=== PATIENT | male | born 1965 | race Caucasian/White ===

== ENCOUNTER 2022-10-27 13:05 | Observation (INO) | payer BC, SELFPAY ==
[2022-10-27] VITALS (7 sets, daily range): BP systolic 169–205; BP diastolic 93–113; PULSE 70–83; RESP 18; TEMP 36.6–36.8; O2SAT 96–97; BMI 34.9; BMI 34.3
--- NOTE | 2022-10-27 13:37 | CT_ITS ---
EXAM: CT HEAD WITHOUT INTRAVENOUS CONTRAST CLINICAL INDICATION: dizziness TECHNIQUE: Multiple axial images were obtained of the head without intravenous contrast. This CT exam was performed using one or more of the following dose reduction techniques: automated exposure control, adjustment of the mA and/or kV according to patient size, and/or use of iterative reconstruction technique. This report was created using [employer] report generation technology. COMPARISON: None. FINDINGS: BRAIN AND EXTRA-AXIAL SPACES: Normal. No intra- or extra-axial hemorrhage. No acute infarct. No intracranial mass or mass effect. There is preservation of the alejandra/white matter interface. Posterior fossa structures are unremarkable. Ventricles are appropriate for age. No hydrocephalus. Basal cisterns are patent. BONES/JOINTS: No suspicious lytic or blastic abnormality. SINUSES: Minimal opacification of the right mastoid sinus. MASTOID AIR CELLS: Normal. Clear. ORBITS: Visualized globes, extraocular muscles, optic nerves and retrobulbar fat appear unremarkable. CT/Brain/Head without Contrast IMPRESSION: No acute intracranial abnormality. Electronically Signed: Dany Weiss MD at 14:57 EDT ,
--- NOTE | 2022-10-27 13:38 | EKG12_ITS ---
Test Reason : Blood Pressure : / mmHG Vent. Rate : 076 BPM Atrial Rate : 076 BPM P-R Int : 194 ms QRS Dur : 106 ms QT Int : 406 ms P-R-T Axes : 056 -16 021 degrees QTc Int : 456 ms Normal sinus rhythm Normal ECG Confirmed by FLOR PALMER, TREY ([id number]), news videotape editor ASYA HAYWOOD ([id number]) on 10/28/2022 11:40:04 AM Referred By: LITA Confirmed By:TREY RAY MD
--- NOTE | 2022-10-27 13:41 | EDS_ITS ---
HPI History of Present Illness Chief Complaint: Dizziness Informant: patient and spouse/S.O. Onset/Context/Timing Onset: Days Context: Gradual Onset Timing: Continuous Current Severity: Mild Maximum Severity: Mild Narrative Narrative: 57-year-old male history of hypertension diabetes. No prior stroke or TIA. No history of vertigo or dizziness. States has been off balance, lightheaded and in dizzy for the last 5 days it started gradually on Friday. Nothing particular makes it better or worse other than with trying to get up and walk. He denies any headache. He denies any numbness or weakness to his upper or lower extremities. Again he had no prior history of this. He denies any head trauma. Denies any earaches or recent illness. Prior similar symptoms: No Recent Illness/Hospitalization: No PFSH PFSH Medical History Hypercholesteremia Hypertension Type 2 diabetes mellitus Home Medications atorvastatin 40 mg tablet 40 mg PO DAILY 10/27/22 [History Last Taken Unknown] glipizide 10 mg tablet, extended release 24 hr 10 mg PO DAILY 10/27/22 [History Last Taken Unknown] lisinopril 10 mg tablet 10 mg PO DAILY 10/27/22 [History Last Taken Unknown] meclizine 25 mg tablet 25 mg PO 4X/DAY PRN PRN Dizziness #20 tabs 10/27/22 [Rx Last Taken Unknown] pioglitazone 30 mg tablet 30 mg PO DAILY 10/27/22 [History Last Taken Unknown] Allergy/AdvReac Type Severity Reaction Status Date / Time No Known Allergies Allergy Verified 10/27/22 13:11 Family History (Updated 10/27/22 @ 18:[address] Alfred Trinidad DO) Other CVA (cerebral vascular accident) Social History Smoking Status: Current some day smoker tobacco type: cigars ROS ROS ED ROS Narrative Dizziness. Off balance. Review of Systems ROS Unobtainable: Denies due to encephalopathy Constitutional Constitutional ED: Denies chills or fever(s) Eyes Eyes: Denies blurry vision ENT ENT ED: Denies ear pain Cardiovascular Cardiovascular: Denies chest pain Respiratory/Chest Respiratory/Chest: Denies cough or dyspnea Gastrointestinal Gastrointestinal: Reports nausea and vomiting; Denies abdominal pain Genitourinary Genitourinary ED: Denies dysuria or hematuria Musculoskeletal Musculoskeletal: Denies arthralgias Integumentary Denies abscess Neurologic Neurologic: Denies headache(s) Psychiatric Psychiatric: Denies anxiety or depression Endocrine Endocrinology: Denies cold intolerance Hematologic/Lymphatic Hematologic/Lymphatic: Reports none Allergic/Immunologic Allergic/Immunologic ED: Denies mouth swelling or tongue swelling EXAM Physical Exam Narrative Exam Narrative: [id number] male vital signs stable afebrile. H EENT exam pupils round reactive light. His motions are intact. Moist with membranes. No facial droop. Normal speech. Neck nontender. Lungs clear to auscultation bilaterally. Heart regular rhythm rate about 80 no murmur. Chest wall nontender. Abdomen soft nontender. Moving all 4 extremities. 5-5 electrical high tension tester strength. Dorsi plantarflexion intact. Neurologic exam normal. NIH is 0. Extraocular motions are intact. Pupils round reactive light. No facial droop. Normal speech. Fingertip to nose and omfj-al-[id number] within normal limits. Normal strength and sensation both upper and lower extremities. No drift. Negative Hallpike maneuver. TMs are visualized and there is no signs of any cerumen impaction. Const Vital Signs: 10/27/22 13:06 10/27/22 13:13 10/27/22 15:12 Temperature 97.8 F Temperature Source Temporal Pulse Rate 83 Respiratory Rate 18 18 Respiratory Effort Normal Non-Labored Respiratory Pattern Normal Blood Pressure 169/93 H Blood Pressure Mean 118 Pulse Ox 97 Oxygen Delivery Method Room Air Room Air 10/27/22 17:08 Temperature Temperature Source Pulse Rate 70 Respiratory Rate 18 Respiratory Effort Respiratory Pattern Blood Pressure 191/98 H Blood Pressure Mean 129 Pulse Ox 97 Oxygen Delivery Method Room Air Positive well nourished and well developed; Negative for cachectic, contractures or unkempt General Appearance ED: well developed and NAD; Negative for unkempt, cachectic, contractures, cyanotic, diaphoretic or pallor Nutritional Appearance: Negative for cachectic HEENT Reports moist mucous membranes; Denies dry mucous membranes Negative for trauma or tenderness Mouth ED: No dry mucous membranes Mouth: No dry mucous membranes Eyes PERRL and EOMs intact bilaterally General Eye ED: Negative for pale conjunctiva, scleral icterus or other Neck no lymphadenopathy, supple and no JVD General: Negative for tenderness Lymph Lymphatic: Negative for other Chest Wall inspection of chest normal and palpation of chest normal Chest: Negative for other Resp normal respiratory effort and clear to auscultation bilaterally Effort and Inspection: Negative for retractions Auscultation: Negative for rales, rhonchi or wheezes Cardio regular rate, regular rhythm, S1 normal heart sound, S2 normal heart sound and no murmurs Palpation: Negative for palpable S3 Rate: Negative for bradycardia Rhythm: Negative for abnormal rhythm GI normal to inspection, nondistended, normoactive bowel sounds, non-tender, non- distended and no masses Inspection: Negative for abdominal distention Auscultation: normoactive bowel sounds Palpation: soft; Negative for tender or guarding Back/Spine no CVA tenderness General Back: Negative for CVA tenderness Cervical Spine: Negative for cervical spine tenderness Thoracic Spine / Upper Back: Negative for thoracic spinal tenderness Lumbar Spine / Lower Back: Negative for lumbar spinal tenderness Extremity normal to inspection General Extremety ED: Negative for edema or tenderness General Extremity: Negative for edema Neuro oriented x3 and CN's II-XII intact bilaterally Neuro Narrative: Lying in bed he has normal neurologic exam. NIH is 0. Fingertip to nose within normal limits. Normal speech. No facial droop. Negative Hallpike maneuver. Ryou-td-xcwe within normal limits. No drift of upper or lower extremities. Sensorium / Orientation: alert; Negative for orientation impaired, lethargic, stuporous or other Motor Exam: strength 5/5 throughout; Negative for general weakness or strength abnormal Psych mental status grossly normal Appearance: Negative for unkempt Attitude: No agitated Mood & Affect: Negative for depressed, anxious or tearful Skin no rashes or lesions noted and no wounds General Skin Exam: elasticity normal; Negative for jaundice or pallor Lesions: No lesion noted Rashes: No rashes noted Trauma: Negative for abrasion Wounds: Negative for wounds noted MDM MDM MDM Narrative Medical decision making narrative: 57-year-old diabetic hypertensive male with new onset dizziness for 4 to 5 days. Exam benign in bed. Clinically at least he had negative Hallpike this really does not seem like vertigo. Will be worked up for a possible stroke. He is outside of any window for tPA and his NIH is 0. We will try to ambulate him. Other considerations would be dehydration which clinically he does not appear, orthostatic hypotension which is does not appear to be. Electrolyte abnormalities etc. Screening labs and CAT scan EKG will be obtained. Repeat exam at 2:48 PM patient doing well. He has no symptoms now and he said he did not have any symptoms when I first examined him. His neurologic exam remains normal. I walked him he walks without any difficulty at all. No ataxia. He has a normal gait. He is not off balance. Again currently symptom- free. Patient CTA returned showing occlusion of the one vertebral artery. Discussed specifically with the radiologist who said he cannot determine if this is acute, if it is chronic or if it is an anatomical variant and he only has 1 vertebral artery. On repeat exam again the patient is symptom-free. He has a completely normal neurologic exam. He ambulates without any difficulty. I discussed this at length with he and his . The radiologist suggested an MRI that could more clarify this. I discussed the patient with the hospitalist and he is down evaluating for admission. We will mid to patient for further evaluation and MRI. The concern would be could this be a vertebrobasilar insufficiency or an acute occlusion. That she had to be determined. Patient and are aware and are comfortable with the plan. History & Record Review Discussion w/independent historian: Patient and Family Lab Data Attestation: I reviewed the patient's lab results. Lab results narrative: CBC normal. White count 9. H&H 14 and 44. Platelets 212. Electrolytes unremarkable gap of 4. BUN of 19 creatinine 0.9. Glucose 115. Labs are unremarkable. Labs: Laboratory Results - last 24 hr 10/27/22 10/27/22 13:49 13:49 WBC 9.2 RBC 5.20 Hgb 14.2 Hct 44.1 MCV 84.8 MCH 27.3 MCHC 32.2 RDW Std Deviation 41.2 RDW Coeff of Jamin 13.4 Plt Count 212 MPV 10.2 Immature Gran % (Auto) 0.400 Neut % (Auto) 63.4 Lymph % (Auto) 27.6 Mitchell % (Auto) 6.0 Eos % (Auto) 2.2 Baso % (Auto) 0.4 Absolute Neuts (auto) 5.8 Absolute Lymphs (auto) 2.54 Nucleated RBC % 0 Sodium 138 Potassium 3.9 Chloride 108 H Carbon Dioxide 26.0 Anion Gap 4 L BUN 19 H Creatinine 0.99 Estim Creat Clear Calc 94.16 Est GFR (MDRD) Af Amer 100 Est GFR (MDRD) Non-Af 83 BUN/Creatinine Ratio 19.2 Glucose 115 H Calcium 8.9 Radiography Diagnostic Testing: Clinical Impression(s) from Imaging Studies Brain CT 10/27/22 13:37 IMPRESSION: No acute intracranial abnormality. 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 Prominent tortuosity of the cervical portion of the internal carotid and vertebral arteries without focal stenosis or dissection. No intracranial aneurysm. Electronically Signed: Dany Weiss MD at 16:28 EDT , Rhythm Strip Rhythm Strip: Sinus Rhythm Rate: 76 Ectopy: None EKG Initial EKG: Attestation: I personally reviewed and interpreted this EKG as follows: Interpretation: Sinus Rhythm and No Acute Injury Pattern Comments: Sinus rhythm rate of 76 no acute signs of NV or ischemia. No dysrhythmia. Discharge Plan Dx/Rx/DC Orders Clinical Impression: Dizziness, History of diabetes mellitus, History of hypertension Disposition Disposition: Acute Care Hospital [facility]
[2022-10-27 13:55] LABS: Absolute Lymphocyte Count 2.54 X10^3/uL (0.83-4.51); Absolute Neutrophil Count 5.8 X10^3/uL (2.0-7.7); Basophil# 0.04 X10^3/uL; Basophil% 0.4 % (0-1); Eosinophils% 2.2 % (0-5); Hematocrit 44.1 % (40-54); Hemoglobin 14.2 g/dL (13.0-16.5); Lymphocyte # 2.54 X10^3/ul (0.83-4.51); Lymphocyte % 27.6 % (19-41); Mean Corp Hgb Conc 32.2 g/dL (32-36); Mean Corpuscular Hgb 27.3 pg (27.0-32.0); Mean Corpuscular Volume 84.8 fL (80-94); Mean Platelet Vol. 10.2 fl (6.2-12.0); Monocyte# 0.55 X10^3/uL; NRBC Flagged by Analyzer 0 % (0-5); Neutrophil # 5.82 X10^3/uL (2.7-7.7); Neutrophil % 63.4 % (47-70); Platelet Count 212 K/mm3 (150-450); RBC Distribution Width CV 13.4 % (11.6-14.6); RBC Distribution Width SD 41.2 fl (35.1-43.9); White Blood Count 9.2 K/mm3 (4.4-11.0)
[2022-10-27 14:07] LABS: Anion Gap 4 (5-15); BUN 19 mg/dL (7-18); BUN/Creat Ratio 19.2 RATIO (10-20); Calcium,Total 8.9 mg/dL (8.5-10.1); Chloride 108 mmol/L (98-107); Creatinine, Serum 0.99 mg/dL (0.70-1.30); EST Glomerular Filtration Rate 83 mL/min (>60); Est Glom Filt Rate - Afr Amer 100 mL/min (>60); Estimated Creatinine Clearance 94.16 ml/min; Glucose 115 mg/dL (74-106); Potassium 3.9 mmol/L (3.5-5.1); Sodium Level 138 mmol/L (136-145)
--- NOTE | 2022-10-27 14:52 | CT_ITS ---
INDICATION: transient ataxia EXAMINATION: CTA HEAD - CTA Head and Neck W/ Contrast Injection (and W/O Contrast Images if performed) TECHNIQUE: [place]/head CT angiogram protocol was performed following IV contrast. Routine carotid CT angiogram protocol was performed without and with IV contrast. NASCET criteria using the distal ICAs for comparison were used for evaluation of stenoses. 3D reconstructions were reviewed of the CT angiogram head and neck. A radiation dose optimization technique was used for this scan. IV Contrast dosage and agent: 100 cc [id number] COMPARISON: None. FINDINGS: --Anterior cerebral circulation: ACAs: No significant stenosis at the visualized segments. A single anterior cerebral artery noted distal to the anterior communicating artery. ACOM: Present. MCAs: No significant stenosis at the visualized segments. --Posterior cerebral circulation: PCOMs: Right P-comm is present. music executive: No significant stenosis at the visualized segments. BASILAR ARTERY: No significant stenosis. --Carotid and vertebral circulation: AORTIC ARCH AND BRANCHES: Normal anatomy, patent. RIGHT CCA: Calcific plaquing at the carotid bulb. No occlusion, significant stenosis or dissection. RIGHT ICA: Marked tortuosity. No occlusion, significant stenosis or dissection. LEFT CCA: Mild calcific plaquing at the carotid bulb. No occlusion, significant stenosis or dissection. LEFT ICA: Mild tortuosity. No occlusion, significant stenosis or dissection. RIGHT VERTEBRAL ARTERY: Moderate tortuosity. No occlusion, significant stenosis or dissection. LEFT VERTEBRAL ARTERY: Moderate tortuosity. 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 NECK SOFT TISSUES: Unremarkable. LUNG APICES: Clear. BONES: Unremarkable. 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 Prominent tortuosity of the cervical portion of the internal carotid and vertebral arteries without focal stenosis or dissection. No intracranial aneurysm. Electronically Signed: Dany Weiss MD at 16:28 EDT ,
--- NOTE | 2022-10-27 18:33 | HP.PCM.HOS_ITS ---
HPI - General General Date of Admission: 10/27/22 Date of Service: 10/27/22 Chief Complaint: vertio HPI Narrative CORONA PLASCENCIA, is a 57 M who presents presents with recurrent vertigo. Symptoms began last Friday began suddenly and abated suddenly. Had a couple of other episodes and then another one today. He was concerned and presented to the emergency room. Initial head CT was unremarkable. Got the patient up and walked around patient was doing well. CTA of the head neck showed occlusion of the proximal intracranial portion of the left vertebral artery. Discussed with Dr. Mcduffie, the emergency room, who spoke with radiology who stated that it could be an occlusion versus congenital abnormality but is unclear. But given the patient's findings, medical history, the decision was made to bring patient in for further neurologic evaluation including an MRI. Patient has never had vertigo like this in the past. [facility] Medical History Hypercholesteremia Hypertension Type 2 diabetes mellitus Home Medications atorvastatin 40 mg tablet 40 mg PO DAILY 10/27/22 [History Last Taken Unknown] glipizide 10 mg tablet, extended release 24 hr 10 mg PO DAILY 10/27/22 [History Last Taken Unknown] lisinopril 10 mg tablet 10 mg PO DAILY 10/27/22 [History Last Taken Unknown] meclizine 25 mg tablet 25 mg PO 4X/DAY PRN PRN Dizziness #20 tabs 10/27/22 [Rx Last Taken Unknown] pioglitazone 30 mg tablet 30 mg PO DAILY 10/27/22 [History Last Taken Unknown] Allergy/AdvReac Type Severity Reaction Status Date / Time No Known Allergies Allergy Verified 10/27/22 13:11 Family History (Updated 10/27/22 @ 18:[address] Alfred Trinidad DO) Other CVA (cerebral vascular accident) Social History Smoking Status: Current some day smoker tobacco type: cigars ROS ROS Narrative All review of systems were negative except as mentioned above in the history of present illness and the other review of systems. Vital Signs Vital Signs Vital Signs: 10/27/22 13:06 10/27/22 13:13 10/27/22 15:12 Temperature 36.6 C Temperature Source Temporal Pulse Rate 83 Respiratory Rate 18 18 Respiratory Effort Normal Non-Labored Respiratory Pattern Normal Blood Pressure 169/93 H Blood Pressure Mean 118 Pulse Ox 97 Oxygen Delivery Method Room Air Room Air 10/27/22 17:08 Temperature Temperature Source Pulse Rate 70 Respiratory Rate 18 Respiratory Effort Respiratory Pattern Blood Pressure 191/98 H Blood Pressure Mean 129 Pulse Ox 97 Oxygen Delivery Method Room Air Weight Weight: 120.202 kg Body Mass Index (BMI) 34.9 Physical Exam Narrative - Physical Exam General: Alert, Oriented x3, Cooperative HEENT: Atraumatic, PERRLA, EOMI, Normocephalic Oral: Moist Mucosa, No Gingival or Mucosal Lesions/ Ulcerations Neck: Supple, No JVD, Negative Carotid Bruits Lungs: Clear to auscultation, Normal air movement Cardiovascular: Regular rate, Normal S1, Normal S2, No murmurs Abdomen: Bowel Sounds Present, Soft, Non Tender, Non-Distended, No Hepato-splenomegaly Extremities: No clubbing, No cyanosis, No edema, Capillary Refill Less than 3 Seconds Skin: No rashes, No breakdown Musculoskeletal: No Tenderness to Palpation of Joints or Extremities Neurological: Neuro grossly intact. Cranial nerves II through XII gross intact strength 5-5 in upper and lower extremities. Finger-nose intact. Sensation grossly intact. Psych/Mental Status: Normal Affect, Appropriate Results Lab / Micro Data Attestation: I reviewed the patient's lab results. Result Diagrams: 10/27/22 13:49 10/27/22 13:49 Labs: Laboratory Results - last 24 hr 10/27/22 13:49: WBC 9.2, RBC 5.20, Hgb 14.2, Hct 44.1, MCV 84.8, MCH 27.3, MCHC 32.2, RDW Std Deviation 41.2, RDW Coeff of Jamin 13.4, Plt Count 212, MPV 10.2, Immature Gran % (Auto) 0.400, Neut % (Auto) 63.4, Lymph % (Auto) 27.6, [place] % (Auto) 6.0, Eos % (Auto) 2.2, Baso % (Auto) 0.4, Absolute Neuts (auto) 5.8, Absolute Lymphs (auto) 2.54, Nucleated RBC % 0 10/27/22 13:49: Sodium 138, Potassium 3.9, Chloride 108 H, Carbon Dioxide 26.0, Anion Gap 4 L, BUN 19 H, Creatinine 0.99, Estim Creat Clear Calc 94.16, Est GFR (MDRD) Af Amer 100, Est GFR (MDRD) Non-Af 83, BUN/Creatinine Ratio 19.2, Glucose 115 H, Calcium 8.9 Rhythm Strip Rhythm Strip: Sinus Rhythm Rate: 76 Ectopy: None EKG Initial EKG: Attestation: I personally reviewed and interpreted this EKG as follows: Prior EKG tracings: available for review EKG Rhythm Intrepretation: Sinus Rhythm Radiology Impression Brain CT 10/27/22 13:37 IMPRESSION: No acute intracranial abnormality. 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 Prominent tortuosity of the cervical portion of the internal carotid and vertebral arteries without focal stenosis or dissection. No intracranial aneurysm. Electronically Signed: Dany Weiss MD at 16:28 EDT , Assessment & Plan Assessment/Plan (1) Dizziness: PLAN: Etiology could be BPPV versus posterior circulation stroke. Going against posterior circulation stroke is the fact that it is intermittent. 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 Could be an occlusion versus congenital abnormality. PLAN: Plan Chronic condition * Hypertension: Accelerated this time. Continue with lisinopril. As needed hydralazine. * Diabetes mellitus type 2: Noncemented. Continue with his home medications. Sliding scale insulin. Check an A1c. * Hyperlipidemia: Continue with statin. Check lipid panel. VTE prophylaxis: Not indicated given current observation status Charges/Coding Visit Charges Inpatient E&M: 09809 Init Hosp L3
[2022-10-27] MEDS: Lisinopril 10 MG Tablet PO (18:50)
--- NOTE | 2022-10-27 19:22 | ECHOD_ITS ---
Reason For Study: TIA/CVA Procedure This was a 2D Doppler, Color Flow transthoracic echocardiogram. Exam performed portable in patient room. Left Ventricle Normal LV size. Left ventricular systolic function is normal. Stage 1 diastolic dysfunction. The estimated ejection fraction is 55 %. No regional wall motion abnormalities noted. Right Ventricle Normal RV size. The right ventricle is normal in size, function, and thickness. Atria Normal left atrium. Normal right atrium. Bubble contrast study negative for right to left interatrial shunt. Mitral Valve Normal mitral valve. Tricuspid Valve Normal tricuspid valve. Aortic Valve Normal aortic valve. Pulmonic Valve Normal pulmonic valve. Great Vessels Normal aortic root. The pulmonary artery is normal size. Normal inferior vena cava. Pericardium/Pleural No pericardial effusion. Medication Performed a rapid injection of agitated mix of 9 cc saline and 1cc air to assess for atrial septal defect. MMode/2D Measurements & Calculations LVIDd: 4.6 cm IVSd: 1.3 cm Ao root diam: 3.5 cm LVIDs: 3.4 cm LVPWd: 1.1 cm RVDd: 4.1 cm FS: 25.4 % LAV(MOD-bp): 54.3 ml LVAd ap4: 28.2 cm2 SV(MOD-sp4): 46.2 ml LAV(MOD-bp) Indexed: 22.4 ml/m2 LVLd ap4: 8.3 cm LAV(MOD-sp2): 68.8 ml EDV(MOD-sp4): 77.3 ml LAV(MOD-sp4): 43.8 ml EDV(sp4-el): 81.3 ml LVAs ap4: 15.9 cm2 LVLs ap4: 6.8 cm ESV(MOD-sp4): 31.2 ml ESV(sp4-el): 31.2 ml EF(MOD-sp4): 59.7 % EF(sp4-el): 61.6 % SV(sp4-el): 50.1 ml LA A4 area: 17.3 cm2 LA dimension(2D): 3.9 cm RA A4 area: 13.2 cm2 Time Measurements MV dec time: 0.23 sec Doppler Measurements & Calculations MV E max angelo: 53.2 cm/sec Lat Peak E' Angelo: 5.2 cm/sec Med Peak E' Angelo: 5.9 cm/sec MV A max angelo: 81.7 cm/sec E/E' lat: 10.3 E/E' med: 9.0 MV E/A: 0.65 MV dec slope: 230.2 cm/sec2 Ao V2 max: 119.2 cm/sec LV V1 max: 101.5 cm/sec Ao max P.7 mmHg LV V1 max P.1 mmHg Ao V2 mean: 90.9 cm/sec Ao mean P.5 mmHg Ao V2 VTI: 25.6 cm PA V2 max: 91.6 cm/sec ECHO/Echo Complete Interpretation Summary Normal LV size. Left ventricular systolic function is normal. Stage 1 diastolic dysfunction. The estimated ejection fraction is 55 %. Bubble contrast study negative for right to left interatrial shunt. Ordering Physician: Alfred Trinidad Referring Physician: Zina Le Performed By: Maritza Galloway, MARGIE, RVT
[2022-10-27 19:36] LABS: Troponin-I HS 6 pg/mL (3.0-78.0)
[2022-10-27 19:58] LABS: Hemoglobin A1c 7.4 % (3.8-5.6)
[2022-10-27 22:25] LABS: Bedside Glucose 108 mg/dL (74-106)
[2022-10-28 03:20] VITALS: BP 142/91; PULSE 83; RESP 16; TEMP 36.4; O2SAT 96
[2022-10-28 05:58] LABS: Cholesterol 181 mg/dL (200); High Density Lipoprotein 35 mg/dL; Triglycerides 186 mg/dL; Very Low Density Lipoprotein 37 mg/dL (5-40)
[2022-10-28] MEDS: Insulin Lispro 100 UNIT/ML INSULN.PEN SC ×2 (06:43→12:02)
[2022-10-28] MEDS: Acetaminophen 325 MG Tablet 650 MG PO (06:43)
[2022-10-28 07:14] VITALS: BP 175/94; PULSE 81; RESP 18; TEMP 36.6; O2SAT 95
--- NOTE | 2022-10-28 07:16 | PN.HOSP_ITS ---
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 (10/27/22) Dizziness and giddiness (10/27/22) Objective Data Objective Data Vital Signs: Vital Signs Temp Pulse Resp BP Pulse Ox O2 Del Method 97.9 F 81 18 175/94 H 95 Room Air 10/28/22 07:14 10/28/22 07:14 10/28/22 07:14 10/28/22 07:14 10/28/22 07:14 10/28/22 07:14 Oxygen Delivery Method Room Air Weight: 118.2 kg Body Mass Index (BMI) 34.3 Intake & Output: Intake and Output for Last 24 Hours 10/26/22 10/27/22 10/28/22 23:59 23:59 23:59 Intake Total 300 / 300 300 / 300 Balance 300 / 300 300 / 300 Lab / Micro Data Result Diagrams: 10/27/22 13:49 10/27/22 13:49 Labs: Laboratory Results - last 24 hr 10/27/22 13:49: WBC 9.2, RBC 5.20, Hgb 14.2, Hct 44.1, MCV 84.8, MCH 27.3, MCHC 32.2, RDW Std Deviation 41.2, RDW Coeff of Jamin 13.4, Plt Count 212, MPV 10.2, Immature Gran % (Auto) 0.400, Neut % (Auto) 63.4, Lymph % (Auto) 27.6, [place] % (Auto) 6.0, Eos % (Auto) 2.2, Baso % (Auto) 0.4, Absolute Neuts (auto) 5.8, Ab solute Lymphs (auto) 2.54, Nucleated RBC % 0 10/27/22 13:49: Sodium 138, Potassium 3.9, Chloride 108 H, Carbon Dioxide 26.0, Anion Gap 4 L, BUN 19 H, Creatinine 0.99, Estim Creat Clear Calc 94.16, Est GFR (MDRD) Af Amer 100, Est GFR (MDRD) Non-Af 83, BUN/Creatinine Ratio 19.2, Glucose 115 H, Calcium 8.9 10/27/22 13:49: Troponin I High Sens 6 10/27/22 13:49: Hemoglobin A1c 7.4 H 10/27/22 20:22: POC Glucose 108 H 10/28/22 05:18: Triglycerides 186, Cholesterol 181, LDL Cholesterol 109, VLDL Cholesterol 37, HDL Cholesterol 35 L Radiography Diagnostic Testing: Radiology Impression Brain CT 10/27/22 13:37 IMPRESSION: No acute intracranial abnormality. 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 Prominent tortuosity of the cervical portion of the internal carotid and vertebral arteries without focal stenosis or dissection. No intracranial aneurysm. Electronically Signed: Dany Weiss MD at 16:28 EDT , Rhythm Strip Rhythm Strip: Sinus Rhythm Rate: 76 Ectopy: None
[2022-10-28 07:20] LABS: Bedside Glucose 161 mg/dL (74-106)
[2022-10-28 07:41] LABS: Absolute Lymphocyte Count 2.39 X10^3/uL (0.83-4.51); Absolute Neutrophil Count 5.8 X10^3/uL (2.0-7.7); Basophil# 0.05 X10^3/uL; Basophil% 0.6 % (0-1); Eosinophil# 0.26 X10^3/uL; Eosinophils% 2.9 % (0-5); Hematocrit 46.4 % (40-54); Hemoglobin 14.8 g/dL (13.0-16.5); Lymphocyte # 2.39 X10^3/ul (0.83-4.51); Lymphocyte % 26.6 % (19-41); Mean Corp Hgb Conc 31.9 g/dL (32-36); Mean Corpuscular Hgb 27.2 pg (27.0-32.0); Mean Corpuscular Volume 85.1 fL (80-94); Mean Platelet Vol. 10.3 fl (6.2-12.0); Monocyte% 5.6 % (0-10); NRBC Flagged by Analyzer 0 % (0-5); Neutrophil # 5.76 X10^3/uL (2.7-7.7); Neutrophil % 63.9 % (47-70); Platelet Count 209 K/mm3 (150-450); RBC Distribution Width CV 13.5 % (11.6-14.6); RBC Distribution Width SD 41.6 fl (35.1-43.9); Red Blood Count 5.45 M/mm3 (4.6-6.2)
[2022-10-28 07:55] LABS: ALB/GLOB Ratio 1.2 RATIO (0.9-2.4); AST(SGOT) 16 U/L (15-37); Alanine Aminotransfer ALT/SGPT 30 U/L (16-61); Albumin, Serum 3.7 g/dL (3.2-5.0); Alkaline Phosphatase 61 U/L (45-117); Anion Gap 5 (5-15); BUN 14 mg/dL (7-18); BUN/Creat Ratio 16.6 RATIO (10-20); Calcium,Total 8.6 mg/dL (8.5-10.1); Chloride 107 mmol/L (98-107); Creatinine, Serum 0.84 mg/dL (0.70-1.30); EST Glomerular Filtration Rate 100 mL/min (>60); Est Glom Filt Rate - Afr Amer 121 mL/min (>60); Estimated Creatinine Clearance 110.97 ml/min; Glucose 157 mg/dL (74-106); Protein, Total 6.7 g/dL (6.4-8.2); Sodium Level 136 mmol/L (136-145)
--- NOTE | 2022-10-28 07:57 | MRI_ITS ---
STUDY: MRI BRAIN WITHOUT CONTRAST REASON FOR EXAM: Male, 57 years old. vertigo. left vertebral occlusion TECHNIQUE: Standardized multiplanar fat and water weighted pulse sequences were obtained. COMPARISON: Head CT dated October 27, 2022. Head CTA dated October 27, 2022 FINDINGS: Normal size of the ventricles and extra-axial spaces for the patient''s age. There are a limited number of small white matter hyperintensities, distributed throughout the deep white matter tracts of the cerebral hemispheres, consistent with mild chronic white matter ischemic changes. There is no evidence for recent intracranial ischemia or other cause of cytotoxic edema on diffusion weighted imaging (DWI). Normal T2* images of the brain without demonstrated susceptibility artifact. There is no demonstrated hemosiderin stain. Normal bilateral basal ganglia. Normal thalami. There is no extra-axial fluid accumulation. Normal flow voids within the major intracranial circulation suggesting patency by spin echo criteria. Normal sella turcica, pituitary gland, infundibular stalk, optic chiasm and hypothalamus. Normal tectal plate and pineal gland. Normal midbrain, itz and medulla. Normal cerebellum. Normal basal cisterns. Normal bilateral temporal bones. Normal bilateral internal auditory canals. No demonstrated orbital abnormality, within the constraints of a routine brain study. Normal visualized paranasal sinuses. Normal calvarium and skull base. Normal visualized soft tissue structures. Normal visualized upper cervical spine. There is mild opacification of the bilateral mastoid air cells, right greater than left. MRI/Brain without Contrast IMPRESSION: 1. Mild chronic ischemic changes of the brain, as described above. 2. No demonstrated acute infarct or intracranial hemorrhage Electronically Signed: Héctor Tenorio MD at 10:47 EDT ,
[2022-10-28] MEDS: Pioglitazone Hydrochloride 30 MG Tablet PO (09:06)
[2022-10-28] MEDS: Lisinopril 10 MG Tablet PO (09:07)
[2022-10-28] MEDS: Aspirin 81 MG TAB.CHEW PO (09:07)
[2022-10-28 12:00] VITALS: BP 161/99; PULSE 89; RESP 18; TEMP 36.4; O2SAT 98
[2022-10-28 12:30] LABS: Bedside Glucose 199 mg/dL (74-106)
[2022-10-28] MEDS: Meclizine 12.5 MG Tablet PO (13:35)
[2022-10-28] MEDS: amLODIPine 5 MG Tablet PO (13:35)
[2022-10-28 14:12] VITALS: BP 149/98; BP 151/93; PULSE 96; PULSE 97
--- NOTE | 2022-10-28 14:32 | CASEMGMT ---
TOM LEMUS updated by hospitalist that patient may benefit from vestibular therapy at discharge. Script received and provided to patient with [employer] information. Patient had no further questions or concerns at this time.
--- NOTE | 2022-10-28 14:43 | DCINST_ITS ---
Discharge Instructions Diet Discharge Diet: No restrictions Activity Discharge Activity: - (Would recommend discussing with your primary care physician this week regarding optimal timing to return to work if your symptoms have improved/resolved) Follow Up Care Test Results: Test results from this visit will be discussed in further detail at your follow- up appointment, if applicable. Discharge Plan Admission Admit Date/Time: 10/27/22 18:26 Primary Reason for Your Visit: Dizziness Attending Provider: Leslie Biswas Primary Care Provider: Zina Le Consulting Providers: Alfred Trinidad Instructions Patient Instructions: BPPV Additional Instructions / Restrictions: DISCHARGE INSTRUCTIONS PLEASE READ *Please take this with you to your next doctors appointment* -You have been prescribed meclizine to take as needed for dizziness episodes -You will also be given a prescription for vestibular rehab, it is strongly advised that you pursue this upon discharge to help with your symptoms -Information neurology will also be provided, would recommend you call upon discharge to schedule an appointment -You had your lisinopril increased to 20 mg daily for your high blood pressure -Would recommend checking your blood pressure daily, if you are systolic blood pressure (top number) is consistently greater than 140 for 3 days or greater than 180 at any point please call your primary care physician for further instructions -Would recommend lab work (BMP) to check your kidney function in 2 to 3 days through your primary care physician's office. Please call their office upon discharge to obtain order for lab work. -Please call your primary care provider's office upon discharge to schedule a hospital follow up within 1 week. -For any concerning signs or symptoms please call 911 or proceed to the nearest emergency department Discharge Orders/Prescriptions Prescriptions: New meclizine 25 mg tablet 25 mg PO 4X/DAY PRN PRN (Reason: Dizziness) Qty: 20 0RF lisinopril 20 mg tablet 20 mg PO DAILY Qty: 30 0RF Continued atorvastatin 40 mg Tablet 40 mg PO DAILY glipizide 10 mg Tablet Extended Release 24hr 10 mg PO DAILY pioglitazone 30 mg Tablet 30 mg PO DAILY Discontinued lisinopril 10 mg Tablet 10 mg PO DAILY Referrals / Follow Up: Zina Le MD [Primary Care Provider] - Within 1 Week Francisco Crandall MD [Non-Staff -Ordering Privileges] - See Referral Note (Please follow-up with neurology upon discharge, please call Dr. Crandall's office upon discharge to schedule an appointment (ph [phone])) Disposition Disposition (needs filled in before D/C Order can be placed): Home, Self Care
--- NOTE | 2022-10-28 14:45 | PCM.DC.SUM ---
Providers Date of Admission: 10/27/22 Date of Discharge: 10/28/22 Primary Care Physician: Dr. 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 Medications at Discharge Home Medications atorvastatin 40 mg tablet 40 mg PO DAILY 10/27/22 glipizide 10 mg tablet, extended release 24 hr 10 mg PO DAILY 10/27/22 meclizine 25 mg tablet 25 mg PO 4X/DAY PRN PRN Dizziness #20 tabs 10/27/22 pioglitazone 30 mg tablet 30 mg PO DAILY 10/27/22 lisinopril 20 mg tablet 20 mg PO DAILY #30 tabs 10/28/22 Hospital Course Procedures 2-D Echocardiogram and - (MRI) Summary of Care Provided Minutes Spent on Discharge: 35 Hospital Course: 57-year-old male history of type 2 diabetes and hypertension presented to [facility] 10/27/2022 with recurrent dizziness episodes that began last Friday and have been off and on. He had another on the day of admission and CT head unremarkable initially however CTA neck showed proximal intracranial portion of left vertebral artery was possibly occluded and ED spoke with radiology who said it was occlusion versus congenital abnormality but it was unclear and is advised he was admitted for further work-up and MRI. MRI with chronic changes and echocardiogram with stage I diastolic dysfunction and an EF of 55% with negative right to left interatrial shunt. Did have 1 episode of the dizzy feeling prior to discharge and it was very positional and resolved after meclizine. No residual symptoms or focal deficits. Orthostats repeated at that time and were negative. Discussed with patient and family member at bedside. Given imaging and symptoms suspect that this is peripheral and not central. Discussed with vascular and given his lack of significant stenosis and other vessels does not have acute indication for vascular inpatient. Likely that this could be congenital, however if completely occluded no intervention would be warranted. Discussed findings and vestibular rehab and patient agreeable to discharge. Discharge instructions as followed: -You have been prescribed meclizine to take as needed for dizziness episodes -You will also be given a prescription for vestibular rehab, it is strongly advised that you pursue this upon discharge to help with your symptoms -Information neurology will also be provided, would recommend you call upon discharge to schedule an appointment -You had your lisinopril increased to 20 mg daily for your high blood pressure -Would recommend checking your blood pressure daily, if you are systolic blood pressure (top number) is consistently greater than 140 for 3 days or greater than 180 at any point please call your primary care physician for further instructions -Would recommend lab work (BMP) to check your kidney function in 2 to 3 days through your primary care physician's office.? Please call their office upon discharge to obtain order for lab work. -Please call your primary care provider's office upon discharge to schedule a hospital follow up within 1 week. -For any concerning signs or symptoms please call 911 or proceed to the nearest emergency department Physical Exam Narrative General: Alert, oriented, no apparent distress HEENT: Atraumatic, normocephalic Eyes: Anicteric, normal conjunctiva, extraocular movements grossly intact Neck: Supple Respiratory: Clear to auscultation bilaterally, normal respiratory effort Cardiovascular: Regular rate and rhythm GI: Soft, nontender, nondistended Extremities: No edema Musculoskeletal: Moving all extremities Neuro: No overt focal neurological deficits, finger-nose without difficulty, no nystagmus, pupils equal round reactive to light, extraocular movements intact, no confusion, cranial nerves II through XII intact Skin: No rashes appreciated Psych: Cooperative Weight / BMI Weight Weight: 118.2 kg Body Mass Index (BMI) 34.3 ABG / Lab / Microbiology Data Result Diagrams: 10/28/22 05:18 10/28/22 05:18 Laboratory: Laboratory Results - last 24 hr 10/27/22 13:49: Troponin I High Sens 6 10/27/22 13:49: Hemoglobin A1c 7.4 H 10/27/22 20:22: POC Glucose 108 H 10/28/22 05:18: Triglycerides 186, Cholesterol 181, LDL Cholesterol 109, VLDL Cholesterol 37, HDL Cholesterol 35 L 10/28/22 05:18: WBC 9.0, RBC 5.45, Hgb 14.8, Hct 46.4, MCV 85.1, MCH 27.2, MCHC 31.9 L, RDW Std Deviation 41.6, RDW Coeff of Jamin 13.5, Plt Count 209, MPV 10.3, Immature Gran % (Auto) 0.400, Neut % (Auto) 63.9, Lymph % (Auto) 26.6, [place] % (Auto) 5.6, Eos % (Auto) 2.9, Baso % (Auto) 0.6, Absolute Neuts (auto) 5.8, Absolute Lymphs (auto) 2.39, Nucleated RBC % 0 10/28/22 05:18: Sodium 136, Potassium 4.0, Chloride 107, Carbon Dioxide 24.0, Anion Gap 5, BUN 14, Creatinine 0.84, Estim Creat Clear Calc 110.97, Est GFR (MDRD) Af Amer 121, Est GFR (MDRD) Non-Af 100, BUN/Creatinine Ratio 16.6, Glucose 157 H, Calcium 8.6, Total Bilirubin 0.40, AST 16, ALT 30, Alkaline Phosphatase 61, Total Protein 6.7, Albumin 3.7, Globulin 3.0, Albumin/Globulin Ratio 1.2 10/28/22 06:39: POC Glucose 161 H 10/28/22 12:00: POC Glucose 199 H Radiography Diagnostic Testing: Radiology Impression Brain CT 10/27/22 13:37 IMPRESSION: No acute intracranial abnormality. 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 Prominent tortuosity of the cervical portion of the internal carotid and vertebral arteries without focal stenosis or dissection. No intracranial aneurysm. Electronically Signed: Dany Weiss MD at 16:28 EDT , Echocardiogram 10/27/22 19:22 Interpretation Summary Normal LV size. Left ventricular systolic function is normal. Stage 1 diastolic dysfunction. The estimated ejection fraction is 55 %. Bubble contrast study negative for right to left interatrial shunt. Ordering Physician: Alfred Trinidad Referring Physician: Zina Le Performed By: Maritza Galloway, MARGIE, RVT Brain MRI 10/28/22 07:57 IMPRESSION: 1. Mild chronic ischemic changes of the brain, as described above. 2. No demonstrated acute infarct or intracranial hemorrhage Electronically Signed: Héctor Tenorio MD at 10:47 EDT Reading Location ID and State: [facility] / [place] , Service support , D/C Instructions Discharge Diet: No restrictions Meaningful Use Info Meaningful Use Diagnoses (Choose all that apply): None applicable Discharge Plan Admission Admit Date/Time: 10/27/22 18:26 Primary Reason for Your Visit: Dizziness Attending Provider: Leslie Biswas Primary Care Provider: Zina Le Consulting Providers: Alfred Trinidad Instructions Patient Instructions: BPPV Additional Instructions / Restrictions: DISCHARGE INSTRUCTIONS PLEASE READ *Please take this with you to your next doctors appointment* -You have been prescribed meclizine to take as needed for dizziness episodes -You will also be given a prescription for vestibular rehab, it is strongly advised that you pursue this upon discharge to help with your symptoms -Information neurology will also be provided, would recommend you call upon discharge to schedule an appointment -You had your lisinopril increased to 20 mg daily for your high blood pressure -Would recommend checking your blood pressure daily, if you are systolic blood pressure (top number) is consistently greater than 140 for 3 days or greater than 180 at any point please call your primary care physician for further instructions -Would recommend lab work (BMP) to check your kidney function in 2 to 3 days through your primary care physician's office. Please call their office upon discharge to obtain order for lab work. -Please call your primary care provider's office upon discharge to schedule a hospital follow up within 1 week. -For any concerning signs or symptoms please call 911 or proceed to the nearest emergency department Discharge Orders/Prescriptions Prescriptions: New meclizine 25 mg tablet 25 mg PO 4X/DAY PRN PRN (Reason: Dizziness) Qty: 20 0RF lisinopril 20 mg tablet 20 mg PO DAILY Qty: 30 0RF Continued atorvastatin 40 mg Tablet 40 mg PO DAILY glipizide 10 mg Tablet Extended Release 24hr 10 mg PO DAILY pioglitazone 30 mg Tablet 30 mg PO DAILY Discontinued lisinopril 10 mg Tablet 10 mg PO DAILY Referrals / Follow Up: Zina Le MD [Primary Care Provider] - Within 1 Week Francisco Crandall MD [Non-Staff -Ordering Privileges] - See Referral Note (Please follow-up with neurology upon discharge, please call Dr. Crandall's office upon discharge to schedule an appointment (ph [phone])) Disposition Disposition (needs filled in before D/C Order can be placed): Home, Self Care Charges/Coding Visit Charges Inpatient E&M: 14134 Disch Hosp >30min
[2022-10-28 15:02] VITALS: BP 151/93; PULSE 89; RESP 18; TEMP 36.4; O2SAT 98
--- NOTE | 2022-10-28 15:04 | CHAPLAIN ---
Type of Pastoral Visit _x__ Initial Visit ___ Follow-up Visit ___ On-call Visit ___ General Patient Visit ___ Spiritual Assessment ___ Family Conference ___ Bereavement ___ Rapid Response ___ Code Blue ___ Other (describe below) Pastoral Care Referral From _x__ Patient ___ Family ___ Nurse ___ Physician ___ Telephone Sterilizer ___ Incoming Freight Clerk ___ Other (describe below) Sacrament/Intervention ___ Active listening ___ Anointing ___ Jewish ___ Bereavement ___ Communion ___ Jacque exploration ___ ___ Life review ___ Prayer ___ Reconciliation ___ Sacrament of Sick _x__ Supportive presence ___ Wedding ___ Other (describe below) Pastoral Comments patient had met with DR just prior to this visit and stated that he was given discharge; pt says that he has no needs or concerns at this time
--- NOTE | 2022-10-28 15:13 | PHA.DC.MC ---
Pharmacy Service has performed discharge medication reconciliation and counseling for this patient. 1. MECLIZINE 25MG PO 4X/DAY PRN DIZZINESS The patient's discharge medication list was reviewed for discrepancies and discrepancies were resolved. Home Medications atorvastatin 40 mg tablet 40 mg PO DAILY 10/27/22 glipizide 10 mg tablet, extended release 24 hr 10 mg PO DAILY 10/27/22 meclizine 25 mg tablet 25 mg PO 4X/DAY PRN PRN Dizziness #20 tabs 10/27/22 pioglitazone 30 mg tablet 30 mg PO DAILY 10/27/22 lisinopril 20 mg tablet 20 mg PO DAILY #30 tabs 10/28/22 The patient was counseled on the following discharge medications and changes in medications for homegoing were reviewed. The Reason for Use, instructions for use, and potential side effects were reviewed for all new medications. The patient's questions regarding all of their medications were answered. The patient was able to verbally demonstrate an understanding of their discharge medications.
[2022-10-28 16:03] VITALS: O2SAT 96
== END 2022-10-28 14:43 | disposition home or self-care (01) ==
LOC: ED 18:03 → PCU 18:35
PROVIDERS: Emergency Provider Emergency Medicine; PCP Family Medicine; Visit Provider Internal Medicine
DX: R42 Dizziness and giddiness (principal); E11.9 Type 2 diabetes mellitus without complications; F17.290 Nicotine dependence, other tobacco product, uncomplicated; I10 Essential (primary) hypertension; E78.00 Pure hypercholesterolemia, unspecified; Z79.899 Other long term (current) drug therapy; Z79.84 Long term (current) use of oral hypoglycemic drugs
CPT/HCPCS: 36415; 70450; 70496; 70498; 70551; 80048; 80053; 80061; 82962; 83036; 84484; 85025; 93005; 93306; 97161; 99221; 99284; Q9957; Q9967; A4216; G0378

== ENCOUNTER → 2024-01-28 | Outpatient (CLI) | payer BC, SELFPAY ==
--- NOTE | 2024-01-28 15:11 | CT_ITS ---
HISTORY: Right tonsillar mass. History of hypertension and diabetes. TECHNIQUE: Helically acquired images were obtained of the neck after the intravenous administration of 100 mL Isovue 370. A radiation dose optimization technique was used for this scan. 313 images. COMPARISON: CTA 10/27/2022. FINDINGS: NASOPHARYNX: Unremarkable. SUPRAHYOID NECK: 3.8 x 4.8 x 5 cm lobulated, heterogeneous, and mildly enhancing right tonsillar mass extending into the oral cavity and tongue. Mild-moderate narrowing and mild leftward deviation of the oropharyngeal airway. Abutment and possible invasion of the right retropharyngeal soft tissues. INFRAHYOID NECK: Unremarkable larynx, hypopharynx, and supraglottis. THYROID: No focal lesions. SALIVARY GLANDS: Right tonsillar mass abuts and possibly invades the right submandibular gland. Homogeneous parotid glands. LYMPH NODES: 1.7 x 2.6 cm necrotic right level 2 lymph node. Left level 2 lymph nodes measuring up to 1.1 cm. VASCULAR STRUCTURES: Mild atherosclerosis present. ORBITS: Symmetric contents. PARANASAL SINUSES: Mild left maxillary sinus because of thickening. MASTOID AIR CELLS: Trace fluid in the right mastoid air cells. OSSEOUS STRUCTURES: Degenerative changes with posterior disc bulge osteophyte complexes at C5-6 and C6-7. No suspicious osteoblastic or osteolytic lesion. Midline sternotomy. LUNG APICES: Clear. 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 Electronically Signed: Vonda Pressley MD at 8:45 EDT ,
[2024-01-28 16:05] LABS: CREATININE FINGERSTICK < 1.0 mg/dL (0.70-1.30); EGFR FINGERSTICK > 60.0000 mL/min (>60)
== END | disposition home or self-care (01) ==
LOC: CT 15:05
PROVIDERS: PCP Family Medicine; Referring Provider Otolaryngology; Visit Provider Otolaryngology
DX: M85.80 Other specified disorders of bone density and structure, unspecified site (principal)
CPT/HCPCS: 70491; Q9967; A4216

== ENCOUNTER 2024-04-09 07:42 | Day surgery (SDC) | payer BC, SELFPAY ==
--- NOTE | 2024-04-09 08:05 | PRE.ANES_ITS ---
ASA Classification* ASA Classification ASA Classification: 3 Assessment & Plan Anesthesia* Anesthesia Assessment Anesthesia Assessment: Discussed sedation and/or anesthesia options, risks, benefits, and alternatives with patient/parents/legal guardian/POA. Questions invited. The patient/parents/legal guardian/POA seems to understand and agrees to proceed with anesthesia plan. Reviewed the physical assessment, medical history, allergy history and patient home medications list prior to surgery/procedure/anesthetic and documented any changes. Performed airway and anesthesia risk assessments. Anesthesia Type Anesthesia Type: MAC (see written pre anesthesia record for full assessment) Anesthesia Focused Assessment* Airway Assessment Mouth opens: >3 cm Mallampati Score: II Focused Labs Anesthesia Preop lab: CBC WBC 7.9 K/mm3 (4.4-11.0) 04/05/24 10:15 RBC 5.10 M/mm3 (4.6-6.2) 04/05/24 10:15 Hgb 13.6 g/dL (13.0-16.5) 04/05/24 10:15 Hct 42.9 % (40-54) 04/05/24 10:15 Plt Count 235 K/mm3 (150-450) 04/05/24 10:15 CHEMISTRY Potassium 4.3 mmol/L (3.5-5.1) 04/05/24 10:15 Sodium 140 mmol/L (136-145) 04/05/24 10:15 Magnesium 2.0 mg/dL (1.6-2.6) 04/05/24 10:15 Phosphorus 3.0 mg/dL (2.5-4.9) 04/05/24 10:15 BUN 16 mg/dL (7-18) 04/05/24 10:15 Creatinine 0.92 mg/dL (0.70-1.30) 04/05/24 10:15 Glucose 130 mg/dL (74-106) H 04/05/24 10:15 POC Glucose 199 mg/dL (74-106) H 10/28/22 12:00 COAG Pre-Assessment Diagnosis/Proposed Procedure Planned Operative Procedure(s): LEFT VASCULAR PORT INSERTION Anesthesia History 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 When Was Last Pacemaker Check QUESTION #4 FULL TEXT: You/Your Family Experience fever (hyperthermia) with Anesthesia Last Oral Intake Last Oral intake: Last Oral Intake NPO since Meds taken in AM with sips of water? Meds patient instructed to take am of surgery PONV PONV - ear machine operator: PONV - ear machine operator Female No 04/07/24 15:36 HX of Motion Sickness No 04/07/24 15:36 HX of N/V After Surgery No 04/07/24 15:36 Non-Smoker Yes 04/07/24 15:36 Duration of Surgery greater No 04/07/24 15:36 than 60 minutes Number of Risk Factors 1 04/07/24 15:36 PONV Score Low Risk 04/07/24 15:36 Height & Weight Height & Weight: Anesthesia: Height & Weight Height 6 ft 1 in 04/08/24 09:11 Weight: 107.048 kg 04/08/24 09:11 Respiratory Assessment Respiratory Assessment - ear machine operator: Respiratory Tract Infection Hx - ear machine operator Hx Respiratory Tract Infection No 04/07/24 15:36 STOP Sleep Apnea STOP Sleep Apnea - ear machine operator: STOP Sleep Apnea - ear machine operator Hx Hypertension Yes: CONTROLLED WITH MED 04/07/24 15:36 Hx Sleep Apnea No 04/07/24 15:36 CPAP BIPAP Do you snore loudly (louder No 04/07/24 15:36 than talking or can be heard Do you often feel tired/ No 04/07/24 15:36 fatigued/ sleepy during daytime? Has anyone observed you stop No 04/07/24 15:36 breathing during sleep? STOP Results Negative 04/07/24 15:36 QUESTION #5 FULL TEXT : Do you snore loudly (louder than talking or can be heard through closed doors)? 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 Specify any problems Hx of Preganancy in last 3 N/A 04/07/24 15:36 Months Nurse Filling Out Transfusion NBUCHER 04/07/24 15:36 & Questions: Date: 04/07/24 04/07/24 15:36 Time: 15:38 04/07/24 15:36 Patient unable to answer at this time (ie. confused, unrespo /Reproduction History /Reproductive History - ear machine operator: /Reproductive Hx- ear machine operator Hx Now No 04/07/24 15:36 Gestational Age (in weeks): EDC: Hx Hx Para Hx Section SAB No 04/07/24 15:36 Active Medications Active Medications: Current Medications Generic Name Dose Route Start Last Admin Trade Name Freq PRN Reason Stop Dose Admin Cefazolin Sodium 2 gm/ Sodium 110 mls @ 150 mls/hr 04/09/24 09:00 Chloride IV 04/09/24 09:43 PREOP ONE [facility] Medical History Wears dentures Diabetes High cholesterol Difficulty swallowing Cancer Non-smoker History of echocardiogram Cardiology follow-up encounter Encounter for education Cerebrovascular disease Coronary artery disease Regional lymph node metastasis present Uses feeding tube Vertebral artery occlusion Hypercholesteremia Hypertension Type 2 diabetes mellitus Home Medications ?Medication ?Instructions ?Recorded ?Last Taken ?Type atorvastatin 40 mg tablet 40 mg PO DAILY 10/27/22 Unknown History glipizide 10 mg tablet, extended 10 mg PO DAILY 10/27/22 Unknown History release 24 hr pioglitazone 30 mg tablet 30 mg PO DAILY 10/27/22 Unknown History lisinopril 20 mg tablet 20 mg PO DAILY #30 tabs 10/28/22 Unknown Rx aspirin 81 mg tablet,delayed 81 mg PO QDAY 03/25/24 Unknown History release carvedilol 6.25 mg tablet (Coreg) 6.25 mg PO BID 03/25/24 Unknown History docusate calcium 240 mg capsule 240 mg PO QDAY 03/25/24 Unknown History oxycodone 5 mg capsule 5 mg PO Q6H PRN pain 03/25/24 Unknown History lidocaine-prilocaine 2.5 %-2.5 % 1 applic topical ONCE PRN port 04/06/24 Unknown Rx topical cream access 30 days #30 grams ondansetron 8 mg disintegrating 8 mg PO Q8H PRN nausea and 04/06/24 Unknown Rx tablet vomiting #30 tabs prochlorperazine maleate 10 mg 10 mg PO Q6H PRN nausea and 04/06/24 Unknown Rx tablet vomiting #30 tabs Allergy/AdvReac Type Severity Reaction Status Date / Time No Known Allergies Allergy Verified 04/07/24 15:33 Family History Mother CVA (cerebral vascular accident) Sister Cancer lung Surgical History S/P CABG x 2 History of open heart surgery Hx of appendectomy Social History household members: spouse number of children: 2 current occupational status: employed 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
[2024-04-09 08:17] VITALS: BP 142/90; PULSE 88; RESP 16; TEMP 36.8; O2SAT 99; BMI 30.2
--- NOTE | 2024-04-09 08:38 | HP.PCM_ITS ---
HPI - General General Date of Admission: 04/09/24 Date of Service: 04/09/24 Chief Complaint: Port placement HPI Narrative CORONA PLASCENCIA, is a 58 M who presents for elective port placement. He was seen in the office recently to set up the surgery. His treating oncologist is recommending chemotherapy and so a Mediport was recommended. He has been treated for squamous cell head neck cancer. We discussed the details of the planned procedure including risks benefits and alternatives. He wishes to proceed. [facility] Medical History Wears dentures Diabetes High cholesterol Difficulty swallowing Cancer Non-smoker History of echocardiogram Cardiology follow-up encounter Encounter for education Cerebrovascular disease Coronary artery disease Regional lymph node metastasis present Uses feeding tube Vertebral artery occlusion Hypercholesteremia Hypertension Type 2 diabetes mellitus Home Medications ?Medication ?Instructions ?Recorded ?Last Taken ?Type atorvastatin 40 mg tablet 40 mg PO DAILY 10/27/22 04/08/24 History glipizide 10 mg tablet, extended 10 mg PO DAILY 10/27/22 04/08/24 History release 24 hr pioglitazone 30 mg tablet 30 mg PO DAILY 10/27/22 04/08/24 History lisinopril 20 mg tablet 20 mg PO DAILY #30 tabs 10/28/22 04/08/24 Rx aspirin 81 mg tablet,delayed 81 mg PO QDAY 03/25/24 04/08/24 History release carvedilol 6.25 mg tablet (Coreg) 6.25 mg PO BID 03/25/24 04/08/24 History docusate calcium 240 mg capsule 240 mg PO QDAY 03/25/24 04/08/24 History oxycodone 5 mg capsule 5 mg PO Q6H PRN pain 03/25/24 Unknown History lidocaine-prilocaine 2.5 %-2.5 % 1 applic topical ONCE PRN port 04/06/24 Unknown Rx topical cream access 30 days #30 grams ondansetron 8 mg disintegrating 8 mg PO Q8H PRN nausea and 04/06/24 Unknown Rx tablet vomiting #30 tabs prochlorperazine maleate 10 mg 10 mg PO Q6H PRN nausea and 04/06/24 Unknown Rx tablet vomiting #30 tabs Allergy/AdvReac Type Severity Reaction Status Date / Time No Known Allergies Allergy Verified 04/09/24 08:14 Family History Mother CVA (cerebral vascular accident) Sister Cancer lung Surgical History S/P CABG x 2 History of open heart surgery Hx of appendectomy Social History household members: spouse number of children: 2 current occupational status: employed 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, 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 pets and animals: No Smoking Status: Never smoker Smokeless tobacco user: other alcohol intake: never substance use type: does not use ROS Constitutional Constitutional: Reports systems reviewed and no addt'l complaints, except as documented Vital Signs Vital Signs Vital Signs: 04/09/24 08:17 04/09/24 08:17 Temperature 98.2 F Temperature Source Temporal Pulse Rate 88 Respiratory Rate 16 Respiratory Pattern Normal Blood Pressure 142/90 H Blood Pressure Mean 107 Blood Pressure Source Monitor Blood Pressure Position Sitting Blood Pressure Location Left Arm Pulse Ox 99 Oxygen Delivery Method Room Air Weight Weight: 229 lb 4.492 oz Body Mass Index (BMI) 30.2 Physical Exam Const alert, oriented x3 and no apparent distress General Appearance: cooperative HEENT normocephalic Eyes PERRL Neck full ROM Assessment & Plan Assessment/Plan (1) 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 We discussed the details of the planned procedure and he wishes to proceed. Risks and benefits were discussed. Surgery will begin momentarily. Charges/Coding Visit Charges Inpatient E&M: 28084 Init Hosp L1
[2024-04-09 08:46] LABS: Bedside Glucose 149 mg/dL (74-106)
[2024-04-09] MEDS: Cefazolin 2 GM in 0.9% Normal Saline (100mL Bag) 100 ML IV (08:48)
[2024-04-09] MEDS: Lidocaine 1% /Epi 1:100 (20ml) 20 ML Vial (09:39)
[2024-04-09] MEDS: Bupivacaine Mpf 0.5% 30 ML VIAL (09:39)
[2024-04-09 09:52] VITALS: BP 138/93; BP 142/90; PULSE 86; RESP 16; TEMP 36.6; O2SAT 95
--- NOTE | 2024-04-09 09:52 | DCINST_ITS ---
Discharge Instructions Diet Discharge Diet: Light diet - advance as tolerated Activity Discharge Activity: Return to Normal Activity and May Shower Dressing / Incision Call your doctor if your incision/area has: Continuous Slow Oozing, Sudden Increased Bleeding, Increased Pain/ Swelling, Increased Redness, Foul Smelling Discharge and Swelling at the incision site Call your doctor if you observe: Fever of 101 or Higher and Change in Color Remove Dressing in: 4 days Cleanse incision/area with: Soap & Water Follow Up Care Test Results: Test results from this visit will be discussed in further detail at your follow- up appointment, if applicable. Discharge Plan Admission Primary Reason for Your Visit: port placement Attending Provider: Nicolas Vivas Primary Care Provider: Zina Le Instructions Print Language: Luxembourger Discharge Orders/Prescriptions Prescriptions: New oxycodone-acetaminophen [Percocet] 5-325 mg tablet 1 tab PO Q8H PRN (Reason: pain) 3 Days Qty: 5 0RF Continued aspirin 81 mg tablet,delayed release (DR/EC) 81 mg PO QDAY carvedilol [Coreg] 6.25 mg tablet 6.25 mg PO BID Rx Instructions: must administer with a meal/food docusate calcium 240 mg capsule 240 mg PO QDAY oxycodone 5 mg capsule 5 mg PO Q6H PRN (Reason: pain) ondansetron 8 mg tablet,disintegrating 8 mg PO Q8H PRN (Reason: nausea and vomiting) Qty: 30 1RF lidocaine-prilocaine 2.5-2.5 % cream 1 applic topical ONCE PRN (Reason: port access) 30 Days Qty: 30 2RF prochlorperazine maleate 10 mg tablet 10 mg PO Q6H PRN (Reason: nausea and vomiting) Qty: 30 2RF atorvastatin 40 mg Tablet 40 mg PO DAILY glipizide 10 mg Tablet Extended Release 24hr 10 mg PO DAILY pioglitazone 30 mg Tablet 30 mg PO DAILY lisinopril 20 mg tablet 20 mg PO DAILY Qty: 30 0RF Referrals / Follow Up: Zina Le MD [Primary Care Provider] - Disposition Disposition (needs filled in before D/C Order can be placed): Home, Self Care
--- NOTE | 2024-04-09 09:54 | PCM.POST.ANE ---
Anesthesia: Postop Eval I Current Vital Signs Temperature: 98 F Pulse Rate: 82 Blood Pressure: 138/93 Respiratory Rate: 18 Pulse Ox: 98 Oxygen Delivery Method: Room Air Assessment Airway patent: Yes Spontaneous unlabored respirations: Yes Mental status: Awake and Calm nausea: No Vomiting: No Anesthesia Complication: No Fluid Hydration Crystalloid volume administer (ml): 100 Total IV fluid infused: 100 Progress Note Anesthesia document: Postop Eval 1 completed: Yes
[2024-04-09 09:55] VITALS: BP 134/77; BP 138/93; BP 142/90; PULSE 82; PULSE 83; RESP 16; RESP 18; TEMP 36.6; O2SAT 96; O2SAT 98
--- NOTE | 2024-04-09 09:57 | OP.PCM_ITS ---
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 His treating oncologist is recommending chemotherapy. A Mediport placement was suggested. Patient was seen in my office recently to discuss port placement surgery. We discussed the details of the surgery as well as the potential risks, benefits and alternatives. He wished to proceed. Patient presents today to have elective port placement surgery. He was brought to the operating room today following informed consent. Preoperative antibiotics were given and a timeout was performed. MAC anesthesia was induced. An axillary roll was placed between the shoulder blades. The left neck and chest regions were prepped and draped in the usual manner. Local anesthetic was then injected in the left periclavicular area. The supplied needle and syringe were then used to gain access to the left subclavian vein. This was encountered on the first pass. The blood return was a dark red, nonpulsatile, and venous appearing blood return. The supplied guidewire was then threaded through the aperture and the needle. C arm was then brought into confirm good placement of the wire and the venous side of the circulation. Next the subcutaneous pocket was then created in the left chest by injecting local anesthetic and then using a #15 blade to make a skin incision. Bovie electrocautery was then used dissect down through the subtendinous tissues down to the level of the chest wall. At this level a subcutaneous pocket was created. The tunneler was connected to the tubing and the tubing was threaded into the larger incision up and out through a smaller incision at the entry point of the guidewire. This was initially trimmed about 24 cm. It was attached to the port. The port was then affixed to the underlying chest wall using Prolene suture. Next the dilator and tear-away sheath were then threaded over the guidewire and advanced to the hub. The guidewire and dilator were then removed thus leaving the sheath in place. The free end of the tubing was then threaded down the sheath and the sheath was then extracted. C arm was brought in to observe the tip of the tubing. This seemed to be crossing over to the right subclavian vein. I then pulled the tubing back until this flipped down into the brachiocephalic vein. I then trimmed about 3 cm off of the tubing and then reaffixed this to the hub. This was then reaffixed to the chest wall using Prolene suture. It martin and flushed easily with injectable saline and then flushed with heparin. The wound was then closed using 3-0 Vicryl and 5-0 Vicryl. Skin glue was applied as dressing. A 2 x 2 and a large OpSite was then applied as dressing along with skin glue. He was awake from anesthesia and taken the PACU in good condition where chest x-ray will be performed. Grafts/Implants Used: 8 [employer] PowerPort Complications None Admit VTE Documentation VTE Present on Admission: No VTE Mechan Device Prophylaxis: SCD's Procedures Cardiovascular CF Procedures [id number]: [id number] Insert tunneled cv cath (port placement )
[2024-04-09 10:00] VITALS: BP 132/87; BP 142/90; PULSE 82; RESP 16; O2SAT 95
--- NOTE | 2024-04-09 10:00 | RAD_ITS ---
STUDY: X-RAY CHEST REASON FOR EXAM: Male, 58 years old. Port placement TECHNIQUE: Single AP portable view of the chest. COMPARISON: None. FINDINGS: A left-sided Port-A-Cath has been placed. The tip is at the junction of the superior vena cava and left brachiocephalic vein. Minimal increased linear markings at the left lung base suggestive of underlying atelectasis. There is no demonstrated pleural abnormality. Sternal cerclage wires and vascular clips are present from a prior sternotomy and coronary artery bypass graft procedure (CABG). Normal mediastinum and nae. Normal visualized pulmonary arteries. Normal visualized aortic arch and descending thoracic aorta. Normal visualized thoracic spine. Normal visualized ribs, clavicles, and shoulders. There is no demonstrated abnormality of the visualized soft tissue structures of the upper abdomen. RAD/CXR for Line Placement IMPRESSION: The tip of the left portacatheter is at the junction of the superior vena cava and left brachiocephalic vein. Mild left basilar linear atelectasis. Electronically Signed: Clement Salas MD at 10:46 EDT ,
[2024-04-09 10:05] VITALS: BP 138/89; BP 142/90; PULSE 78; RESP 16; TEMP 36.6; O2SAT 96
[2024-04-09 10:19] VITALS: BP 142/90
[2024-04-09] MEDS: Acetaminophen 325 MG Tablet 650 MG PO (10:27)
--- NOTE | 2024-04-09 14:33 | POSTOPAN2_ITS ---
Anesthesia Postop Eval I Sum Postop Eval Completion status Anesthesia document: Postop Eval 1 completed: Yes Anesthesia Postop Eval I Summary Anesthesia Postop Eval I Summary: Anesthesia Postop Eval I: Assessment Summary Airway patent Yes 04/09/24 09:55 TRIMMING INSPECTOR.LUIS DANIELOBAnamaria Spontaneous unlabored Yes 04/09/24 09:55 TRIMMING INSPECTOR.ADRIANNA respirations Mental status Awake,Calm 04/09/24 09:55 TRIMMING INSPECTOR.ADRIANNA nausea No 04/09/24 09:55 TRIMMING INSPECTOR.ADRIANNA Vomiting No 04/09/24 09:55 TRIMMING INSPECTORLESVIA Anesthesia Postop Eval I: Fluid Summary Crystalloid volume administer 100 04/09/24 09:55 TRIMMING INSPECTOR.ADRIANNA (ml) Colloids volume administered ( ml) Blood Product volume administered (ml) Total IV fluid infused 100 04/09/24 09:55 TRIMMING INSPECTOR.ADRIANNA Anesthesia Postop Eval I: Summary Notes Anesthesia Complication No 04/09/24 09:55 TRACIE Anesthesia Complication Comment: Post-operative progress note Anesthesia: Postop Eval II Evaluation Mental status: Awake Pain Level: 0 nausea: No Vomiting: No
--- NOTE | 2024-04-09 14:33 | PCM.POSTANE2 ---
Anesthesia Postop Eval I Sum Postop Eval Completion status Anesthesia document: Postop Eval 1 completed: Yes Anesthesia Postop Eval I Summary Anesthesia Postop Eval I Summary: Anesthesia Postop Eval I: Assessment Summary Airway patent Yes 04/09/24 09:55 TIGHTENER.LUIS DANIELOBAnamaria Spontaneous unlabored Yes 04/09/24 09:55 TIGHTENER.[email or web address] respirations Mental status Awake,Calm 04/09/24 09:55 TIGHTENER.[email or web address] nausea No 04/09/24 09:55 TIGHTENER.ADRIANNA Vomiting No 04/09/24 09:55 TIGHTENERLESVIA Anesthesia Postop Eval I: Fluid Summary Crystalloid volume administer 100 04/09/24 09:55 TIGHTENER.ADRIANNA (ml) Colloids volume administered ( ml) Blood Product volume administered (ml) Total IV fluid infused 100 04/09/24 09:55 [email or web address].[email or web address] Anesthesia Postop Eval I: Summary Notes Anesthesia Complication No 04/09/24 09:55 TRACIE Anesthesia Complication Comment: Post-operative progress note Anesthesia: Postop Eval II Evaluation Mental status: Awake Pain Level: 0 nausea: No Vomiting: No
== END 2024-04-09 11:07 | disposition home or self-care (01) ==
LOC: SDC 07:43 → AC 07:44
PROVIDERS: PCP Family Medicine; Referring Provider Surgery; Visit Provider Surgery
PROC: (CPT 36561; principal; 2024-04-09 08:45)
DX: Z45.2 Encounter for adjustment and management of vascular access device (principal); C10.8 Malignant neoplasm of overlapping sites of oropharynx; E11.9 Type 2 diabetes mellitus without complications; E78.00 Pure hypercholesterolemia, unspecified; Z79.84 Long term (current) use of oral hypoglycemic drugs; I25.10 Atherosclerotic heart disease of native coronary artery without angina pectoris; I10 Essential (primary) hypertension; Z79.899 Other long term (current) drug therapy; Z79.82 Long term (current) use of aspirin
CPT/HCPCS: 36561; 00532; 71045; 77001; 82962; A4216; C1788; J2405

== ENCOUNTER → 2024-04-23 | Outpatient (CLI) | payer BC, SELFPAY ==
--- NOTE | 2024-04-23 15:08 | ST.MBS ---
Modified Barium Swallow Patient Information Study Date: 04/23/24 Study Time: 13:00 Direct Billable Minutes: 65 Total Minutes procedure & reportin Diagnosis: SCC of overlapping sites of oropharynx C10.8 Referring Physician: Juan Herrera Reason for Referral: Objectively assess swallow function, assess risk for aspiration, and determine recommendations for least restrictive diet textures and compensatory strategies to improve safety of swallow. 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 He began chemoradiation treatment 04/12/2024. Dysphagia Hx: Pt reports swallowing difficulty beginning in January of 2024 when he began to notice tongue swelling, which prompted further evaluation that identified his cancer. He does consume regular textures / thin liquids, but has experienced foods catching in his throat requiring liquids to wash. He estimates that he has lost ~16lbs since January due to his swallowing difficulty as it is more effortful to get foods down. He denies s/s of aspiration when consuming food/drink. BSE 04/15/2024 revealed mild oral dysphagia and recommended regular textures / thin liquids w/ use of aspiration precautions. TMR TEACHER recommended MBSS to capture baseline swallow function and to further assess aspiration risk and pharyngeal retention sensed by the patient. Currently, he reports complete oral intake of foods and liquids, severe hypogeusia, mild xerostomia. Other PMH: Vertebral artery occlusion, Hypercholesteremia, HTN, DM type 2. Current Diet Ordered: Regular textures / Thin liquids Dentition: Edentulous Mental Status: WNL Respiratory Status: Oxygenating on Room Air Penetration-Aspiration Scale Penetration-Aspiration Scale: OBJECTIVE ASSESSMENT OF SWALLOW FUNCTION (QUANTITATIVE ? PER TRIAL): PENETRATION / ASPIRATION SCALE (DICKSON): 1 = does not enter airway 2 = enters airway/above vocal folds/ejected 3 = enters airway/above vocal folds/not ejected 4 = enters airway/contacts vocal folds/ejected 5 = enters airway/contacts vocal folds/not ejected 6 = enters airway/below vocal folds/ejected 7 = enters airway/below vocal folds/not ejected despite effort 8 = enters airway/below vocal folds/no effort VIDEOFLOROSCOPIC SCALE SCORE (DICKSON): Grade I = aspiration of material that has penetrated into the laryngeal vestibule, intact cough reflex Grade II = aspiration < 10 % of the bolus, intact cough reflex Grade III = aspiration of < 10 % of the bolus, reduced cough reflex or aspiration of > 10 % of the bolus, intact cough reflex Grade IV = aspiration of > 10 % of the bolus, reduced cough reflex Penetration-Aspiration Scale Score Thin Liquid via teaspoon: Result: 1= does not enter airway Thin Liquid via teaspoon Trial 2: Result: 1= does not enter airway Thin Liquid via large single sip: cup: Result: 1= does not enter airway [place] Thick Liquid via large single sip: cup: Result: 1= does not enter airway Pudding via teaspoon: Result: 1= does not enter airway 1/2 Cookie: Result: 1= does not enter airway Thin Liquid via sequential sips:straw: Result: 2= enter airway/above vocal folds/ejected Oral Phase Labial Seal: Interlabial escape, no progression to anterior lip Tongue Control During Bolus Hold: Posterior escape of greater than half of bolus Bolus Preparation/Mastication: Slow prolonged chewing/mashing with complete recollection Bolus Transport/Lingual Motion: Delayed initiation of tongue motion Oral Residue: Residue collection on oral structures (piecemeal deglutition of cookie) Pharyngeal Phase Initiation of Pharyngeal Swallow: Bolus head in pyriforms Soft Palate Elevation: No bolus between soft palate and pharyngeal wall Laryngeal Elevation: Comp. Superior move thyroid cart w/comp. apprx arytenoid cart-epig pet Anterior Hyoid Excursion: Partial anterior movement Epiglottic Movement: Partial inversion Laryngeal Vestibule Closure at Height of Swallow: Incomplete; narrow column of air/contrast in laryngeal vestibule Pharyngeal Stripping Wave: Present - diminished Pharyngoesophageal Segment Opening: Complete distension and complete duration; no obstruction of flow Tongue Base Retraction: Narrow column of contrast between tongue base & post. pharyngeal wall Pharyngeal Residue: Trace residue within or on pharyngeal structures Esophageal Phase Esophageal Clearance: Complete clearance Diagnosis/Impression Diagnosis: Mild oropharyngeal dysphagia R13.12 Impression: The oral phase was primarily marked by... -Premature posterior loss of thin liquids via cup to the pyriforms prior to swallow onset. -Delayed tongue motion for A-P transport. -Prolonged, but complete mastication of cookie. Piecemeal deglutition w/ cookie. The pharyngeal phase is primarily marked by... -Mild delay in swallow onset. -Mildly decreased tongue base retraction and pharyngeal stripping wave with mild pharyngeal residues of liquids, which mostly cleared with independent use of a double swallow. -Partial epiglottic inversion only observed during double swallow of sequential thin liquid trial; otherwise, good airway closure was observed during the MBSS with laryngeal penetration of sequential thin 1X, which fully ejected after the swallow. No aspiration was observed. Recommendations Diet: Regular Textures and Thin Liquids Compensatory Strategies: Small Bites, Small Sips, Slow Rate (Sips one at a time), Alternate bites/solids and sips/liquids and Sitting upright Recommend Repeat Modified Barium Swallow: Yes Comment: Repeat MBSS 3 months after completion of chemoradiation to monitor swallow function as the patient is at risk for worsening dysphagia and aspiration risk s/p chemoradiation treatment for SCC of overlapping sites of oropharynx. Need for Skilled Speech Therapy Services: Yes Comment: Pt to continue with home oropharyngeal exercise program 3-5X daily from OP speech therapy. Will recommend dysphagia therapy 1X every other week during and following chemoradiation treatment for ongoing assessment of diet tolerance, training in strategies to decrease risk for aspiration, education in management of toxicities of chemoradiation that impact swallow function, and encourage continued oral intake and participation in oropharyngeal strengthening to decrease risk for chronic dysphagia. Education Completed: 1. Described result of evaluation., 2. Pt understands evaluation & agrees with goals and treatment plan. and 4. Family/caregivers understand evaluation & agree w/ goals & tx plan. Status Active ST Patient: Active Contact Information [facility] Speech Therapy:: Shanita Padilla M.A. [facility]-TMR TEACHER? Speech-Language Pathologist?? [facility] [address] [place] [address]? [email or web address]?? [phone]
== END | disposition home or self-care (01) ==
LOC: RAD 14:31
PROVIDERS: PCP Family Medicine; Referring Provider Student in an Organized Health Care Education/Training Program; Visit Provider Student in an Organized Health Care Education/Training Program
DX: C10.8 Malignant neoplasm of overlapping sites of oropharynx (principal)
CPT/HCPCS: 74230; 92611

== ENCOUNTER 2024-06-28 10:30 | Outpatient (RCR) | payer BC, SELFPAY ==
--- NOTE | 2024-04-15 08:32 | HP.SP.EVAL ---
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 He began chemoradiation treatment 04/12/2024. Dysphagia Hx: Pt reports swallowing difficulty beginning in January of 2024 when he began to notice tongue swelling, which prompted further evaluation that identified his cancer. He does consume regular textures / thin liquids, but has experienced foods catching in his throat requiring liquids to wash. He estimates that he has lost ~16lbs since January due to his swallowing difficulty as it is more effortful to get foods down. He denies s/s of aspiration when consuming food/drink. Other PMH: Vertebral artery occlusion, Hypercholesteremia, HTN, DM type 2. Smoking Status: Never smoker Pain Is pain an issue with your current prescribed condition?: No Personal Preferred language: Amharic Patient Allergies Allergies Allergies: Allergies No Known Allergies Allergy (Verified 04/14/24 09:05) Subjective Dysphagia Symptoms Reported Symptoms/Problems with: Difficulty Swallowing Solids, Food gets stuck and Weight Loss Current Diet Solids Current Diet: Regular Current Diet Liquids Current Liquids: Thin Comments PEG: -: PEG has been placed, but not yet utilized Objective Dysphagia Administered by Administered by: Self Thin Liquids Administred via: Cup and Straw Patient Report: Pt denies difficulty swallowing liquids. Comments: Pt consumed thin water and coffee via cup and straw w/ timely swallow, no overt s/s of aspiration. Pureed Comments: Pt consumed bites of applesauce via tsp w/ timely swallow, no overt s/s of aspiration, good oral clearance. Regular Comments: Pt consumed regular textured Umm [place] via tsp w/ timely swallow, need for bite of applesauce to moisten and swallow, no overt s/s of aspiration, minimal oral residues, which fully cleared w/ liquid wash. 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 He feels his voice is somewhat deeper than it was prior to January 2024. XII Hypoglossal Nerve XII Hypoglossal Nerve Result: Impaired Comment:: Tongue deviates R and has mild weakness w/ L lateralization Swallowing Performance Scale Swallowing Performance Scale Swallowing Performance Scale Result: 3 Mild Reference: Neuro-QoL instrument Radiation Oncology Patient FOIS Functional Oral Intake Scale Total oral diet with multiple consistencies, but requiring special preparation or compensations: Level 5 Total oral diet with multiple consistencies without special preparation, but with specific food limitations: Level 6 Other Other EAT-10: -: Eating Assessment Tool (EAT-10) ? Score = 5 Score of 3 or more indicates there may be a swallowing problem or dysphagia. For patients with head and neck cancer, researchers found a cut-off value of 19 to be helpful in detecting presence of post-swallow pharyngeal residue. Plan Plan Plan: Will recommend the patient for skilled outpatient dysphagia therapy to address oral dysphagia due to squamous cell carcinoma of overlapping sites of oropharynx. He is also undergoing current chemoradiation, which will increase risk for worsening dysphagia and aspiration risk. Speech therapy POC to include further education re: prophylactic oropharyngeal exercise program, diet texture recommendations, aspiration precautions, and compensatory strategies to decrease risk for aspiration. Additionally, will provide ongoing assessment of diet tolerance during and post chemoradiation treatment. Without skilled ST services, the patient is at increased risk for aspiration, weight loss, malnutrition, and chronic dysphagia. Recommendations Treatment Warranted: Yes Treatment Warranted: Dysphagia Comment: Baseline MBSS recommended Progress Prognosis: Good Frequency Frequency: Every Other Week Goals that are Established Determination:: Goals will be added/modified as deemed necessary and appropriate. Therapy will be discontinued when results of re-evaluation indicate therapy is no longer needed or lack of progress has been documented. Goal #1-5 Goal #1: The patient will consume least restrictive diet textures without overt s/s of aspiration with minimal verbal cues for use of compensatory strategies to decrease risk for aspiration. Goal #2: The patient will complete an oropharyngeal exercise program X10-15 reps, 3-5X daily with minimal verbal cues to improve strength, ROM, and coordination of swallowing mechanism (Damaris, Kathie, Effortful, Yawn stretch). Goal #3: The patient will participate in ongoing education re: short-term and long-term effects of chemoradiation treatment on swallow function and management of symptoms that contribute to dysphagia. Goal #4: The patient will participate in routine MBSS/FEES to objectively assess swallow function and provide recommendations for safest, least restrictive diet and compensatory strategies to reduce risk for aspiration during and following chemoradiation treatment. Education Patient has Indicated that the Following The Patient has indicated that they have no educational or learning abilities that may effect their care.: Yes Patient Instruction Patient Education: Treatment Plan, Goals and Home Exercise Program Other Education: Education provided regarding the toxicities of chemoradiation treatment on swallow function during and post treatment, including effects such as mucositis, dysgeusia, radiation fibrosis, lymphedema, and disuse atrophy which may result in restricted range of motion and weakness of swallowing mechanism. Discussed impaired swallowing and increased risk for aspiration, aspiration related illnesses, weight loss, and malnutrition. Discussed importance for speech therapy to monitor and address dysphagia during and post chemoradiation treatment to maintain optimal swallow function through continued oral intake of LRD textures and completion of oropharyngeal exercise program. Provided the patient a handout and demonstration of prophylactic oropharyngeal exercise program, as well as a jaw ROM exercise (Kathie, Effortful, Damaris, Jaw Stretch). The patient provided return demonstration with all exercises with minimal verbal cues. The patient would benefit from continued training to monitor proper execution of exercises and encourage strict adherence to exercise program. Person Taught: Patient and Family Teaching Method: Discussion, Demonstration, Handout and Teach Back Response to teaching: Return Demonstration, Verbalize Understanding and Reinforcement Needed
== END 2024-06-28 19:00 | disposition home or self-care (01) ==
LOC: SP 10:30
PROVIDERS: PCP Family Medicine; Referring Provider Student in an Organized Health Care Education/Training Program; Visit Provider Student in an Organized Health Care Education/Training Program
DX: C10.8 Malignant neoplasm of overlapping sites of oropharynx (principal)
CPT/HCPCS: 92526; 92610

== ENCOUNTER 2024-07-05 11:26 | Outpatient (RCR) | payer BC, SELFPAY | END 2024-07-06 23:59 | LOC: NS 11:26 | PROVIDERS: PCP Family Medicine; Visit Provider Student in an Organized Health Care Education/Training Program | DX: Z71.3 Dietary counseling and surveillance (principal); C10.8 Malignant neoplasm of overlapping sites of oropharynx ==

== ENCOUNTER 2024-09-02 21:14 | Emergency (ER) | payer BC, SELFPAY ==
[2024-09-02 21:15] VITALS: BP 139/80; PULSE 84; RESP 22; TEMP 36.3; O2SAT 100; BMI 24.7
--- NOTE | 2024-09-02 22:21 | CT_ITS ---
PROCEDURE: SOFT TISSUE NECK WITH CONTRAST REASON FOR EXAM: Question bleeding mass, bright red emesis, coughing blood, lump in throat as of today, history of tongue cancer TECHNIQUE: CT of the soft tissues of the neck from the orbits to the upper mediastinum with intravenous contrast. CONTRAST: 75 cc Isovue 370 COMPARISON: 01/28/2024 FINDINGS: Blurring and ill definition of the right parapharyngeal fat asymmetrically on the right adjacent to the pterygoid muscle for example axial 96 May represent radiation change with residual neoplasm not excluded. No evidence of contrast blush to suggest active extravasation of contrast, active bleed, identified at this time. There is a small amount of frothy material seen at the right side of the hypopharynx for example axial 84 and coronal 36 this may represent secretions, possible blood products. Epiglottis and aryepiglottic folds appear within limits. No airway narrowing or midline shift. The parotid glands appear within limits. No adenopathy identified. The carotids and vertebrals appear within limits. Thyroid appears within limits. No air-fluid levels within the paranasal sinuses. Partial fluid opacification of the mid to lower right mastoid. The visualized apices are clear. Status post median sternotomy and CABG. Left port. Lower cervical spondylosis/discogenic change with bilateral foraminal narrowing CT/Soft Tissue Neck WITH Contrast IMPRESSION: Blurring and ill definition of the right parapharyngeal fat asymmetrically on t he right adjacent to the pterygoid muscle for example axial 96 May represent radiation change with residual neoplasm not excl uded. No evidence of contrast blush to suggest active extravasation of contrast, acti ve bleed, identified at this time. There is a small amount of frothy material seen at the right side of the hypopharynx for e xample axial 84 and coronal 36 this may represent secretions, possible blood products. One or more dose reduction techniques were used (e.g., Automated exposure contr ol, adjustment of the mA and/or kV according to patient size, use of iterative reconstruction technique). Reading Location: [facility]
[2024-09-02] MEDS: 0.9% Normal Saline (500mL Bag) 500 ML 999 ML IV (22:33)
[2024-09-02 22:41] LABS: Absolute Lymphocyte Count 0.63 X10^3/uL (0.83-4.51); Absolute Neutrophil Count 3.3 X10^3/uL (2.0-7.7); Basophil# 0.02 X10^3/uL; Basophil% 0.4 % (0-1); Eosinophil# 0.16 X10^3/uL; Eosinophils% 3.5 % (0-5); Hematocrit 33.8 % (40-54); Hemoglobin 10.8 g/dL (13.0-16.5); Lymphocyte # 0.63 X10^3/ul (0.83-4.51); Lymphocyte % 13.7 % (19-41); Mean Corpuscular Hgb 27.5 pg (27.0-32.0); Mean Platelet Vol. 9.9 fl (6.2-12.0); Monocyte# 0.46 X10^3/uL; NRBC Flagged by Analyzer 0 % (0-5); Neutrophil # 3.31 X10^3/uL (2.7-7.7); Neutrophil % 72.2 % (47-70); Platelet Count 161 K/mm3 (150-450); RBC Distribution Width CV 13.6 % (11.6-14.6); RBC Distribution Width SD 42.5 fl (35.1-43.9); Red Blood Count 3.93 M/mm3 (4.6-6.2); White Blood Count 4.6 K/mm3 (4.4-11.0)
[2024-09-02 23:00] VITALS: BP 118/77; PULSE 69; RESP 16; O2SAT 96
[2024-09-02 23:00] LABS: Prothrombin Time (Protime)PT. 13.9 SECONDS (11.7-14.9)
[2024-09-02 23:01] LABS: Partial Thromboplast Time 28.9 Seconds (24.1-36.2)
[2024-09-02 23:13] LABS: Anion Gap 9 (5-15); BUN 27 mg/dL (4-19); BUN/Creat Ratio 31.1 RATIO (10-20); Calcium 9.5 mg/dL (7.6-11.0); Carbon Dioxide 27.9 mmol/L (22.0-29.0); Chloride 100 mmol/L (96-108); Creatinine, Serum 0.88 mg/dL (0.70-1.20); EST Glomerular Filtration Rate 100 (>60); Estimated Creatinine Clearance 103.41 ml/min; Glucose 161 mg/dL (70-99); Potassium 4.2 mmol/L (3.3-5.1); Sodium Level 137 mmol/L (133-145)
[2024-09-03] VITALS: BP 117/75; PULSE 77; RESP 17; O2SAT 98
[2024-09-03 01:19] VITALS: BP 126/77; PULSE 71; RESP 18; TEMP 36.8; O2SAT 99
--- NOTE | 2024-09-03 01:20 | EX.ED.DYSGE1 ---
HPI History of Present Illness Chief Complaint: GI Bleed Informant: patient and spouse/S.O. Narrative Narrative: Patient is a 59-year-old male with past medical history of hypertension hyperlipidemia coronary artery disease type 2 diabetes and squamous cell carcinoma of the oropharynx. He states he did chemotherapy which ended in May. He reports he is scheduled to follow-up with his oncologist on Friday and reports he has had a recent PET scan. However states that she has noticed some swelling along the anterior aspect of his throat and the patient states this evening while he was in the shower he felt that something ruptured and he had bouts of nausea and vomiting that were bloody in nature. He states he is not on a blood thinner other than baby aspirin and denies any history of bleeding disorder. He reports the symptoms occurred roughly 1 to 2 hours ago and since that time he had no further bouts of hematemesis however because of his history of cancer and throat swelling brought him in for evaluation [facility] Medical History Odynophagia CINV (chemotherapy-induced nausea and vomiting) Encounter for chemotherapy management Wears dentures Diabetes High cholesterol Difficulty swallowing Cancer Non-smoker History of echocardiogram Cardiology follow-up encounter Encounter for education Cerebrovascular disease Coronary artery disease Regional lymph node metastasis present Uses feeding tube Vertebral artery occlusion Hypercholesteremia Hypertension Type 2 diabetes mellitus Home Medications ?Medication ?Instructions ?Recorded ?Last Taken ?Type atorvastatin 40 mg tablet 40 mg PO DAILY 10/27/22 04/08/24 History glipizide 10 mg tablet, extended 10 mg PO DAILY 10/27/22 04/08/24 History release 24 hr pioglitazone 30 mg tablet 30 mg PO DAILY 10/27/22 04/08/24 History lisinopril 20 mg tablet 20 mg PO DAILY #30 tabs 10/28/22 04/08/24 Rx aspirin 81 mg tablet,delayed 81 mg PO QDAY 03/25/24 04/08/24 History release docusate calcium 240 mg capsule 240 mg PO QDAY 03/25/24 04/08/24 History oxycodone 5 mg capsule 5 mg PO Q6H PRN pain 03/25/24 Unknown History lidocaine-prilocaine 2.5 %-2.5 % 1 applic topical ONCE PRN port 04/06/24 Unknown Rx topical cream access 30 days #30 grams ondansetron 8 mg disintegrating 8 mg PO Q8H PRN nausea and 04/06/24 Unknown Rx tablet vomiting #30 tabs prochlorperazine maleate 10 mg 10 mg PO Q6H PRN nausea and 04/06/24 Unknown Rx tablet vomiting #30 tabs promethazine 12.5 mg rectal 12.5 mg NH Q6H PRN nausea #12 ea 04/26/24 Unknown Rx suppository dexamethasone 4 mg tablet 8 mg (2 x 4 mg) PO .COMPLEX #14 04/28/24 Unknown Rx tabs acetaminophen 500 mg/15 mL oral 1,000 mg (30 mL) PO Q6H PRN pain 05/19/24 Unknown Rx liquid #237 mL guaifenesin 100 mg/5 mL oral liquid 200 mg (10 mL) PO Q4H PRN 05/25/24 Unknown Rx congestion #1,000 mL carvedilol 12.5 mg tablet 12.5 mg PO BID 09/02/24 Unknown History clopidogrel 75 mg tablet 75 mg PO DAILY 09/02/24 Unknown History dapagliflozin propanediol 10 mg 10 mg PO DAILY 09/02/24 Unknown History tablet (Farxiga) nystatin 100,000 unit/mL oral 5 ml PO Q6H 09/02/24 Unknown History suspension spironolactone 25 mg tablet 25 mg PO DAILY 09/02/24 Unknown History Allergy/AdvReac Type Severity Reaction Status Date / Time No Known Allergies Allergy Verified 09/02/24 21:15 Family History Mother CVA (cerebral vascular accident) Sister Cancer lung Surgical History S/P CABG x 2 History of open heart surgery Hx of appendectomy Social History household members: spouse number of children: 2 current occupational status: employed 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, 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 [employer] pets and animals: No Smoking Status: Current some day smoker tobacco type: cigars Smokeless tobacco user: other alcohol intake: never substance use type: does not use ROS ROS ED Constitutional Constitutional ED: Denies chills or fever(s) Eyes Eyes: Denies blurry vision or change in vision ENT ENT ED: Reports sore throat and other Details: Negative epistaxis ; Denies rhinorrhea Cardiovascular Cardiovascular: Denies chest pain Respiratory/Chest Respiratory/Chest: Denies cough or dyspnea Gastrointestinal Gastrointestinal: Reports nausea, vomiting and other Details: Positive hematemesis ; Denies abdominal pain or diarrhea Genitourinary Genitourinary ED: Denies dysuria or hematuria Musculoskeletal Musculoskeletal: Denies myalgias or neck pain Integumentary Denies rash Neurologic Neurologic: Denies headache(s) Hematologic/Lymphatic Hematologic/Lymphatic: Denies easy bleeding or easy bruising Allergic/Immunologic Allergic/Immunologic ED: Denies mouth swelling or tongue swelling EXAM Physical Exam Const Vital Signs: 09/02/24 21:15 09/02/24 23:00 09/03/24 00:00 Temperature 97.4 F L Temperature Source Temporal Pulse Rate 84 69 77 Respiratory Rate 22 H 16 17 Blood Pressure 139/80 H 118/77 117/75 Blood Pressure Mean 99 90 89 Pulse Ox 100 96 98 Oxygen Delivery Method Room Air Room Air Room Air 09/03/24 01:19 Temperature 98.2 F Temperature Source Pulse Rate 71 Respiratory Rate 18 Blood Pressure 126/77 H Blood Pressure Mean 93 Pulse Ox 99 Oxygen Delivery Method Positive well nourished and well developed General Appearance ED: well developed; Negative for pallor HEENT HEENT Narrative: Patient has soft tissue swelling along the right cheek/buccal mucosa. In the right posterior pharynx there is dried blood noted No active bleeding present No airway edema or compromise No secondary findings to suggest infection Eyes PERRL and EOMs intact bilaterally General Eye ED: Negative for scleral icterus Neck supple Neck Narrative: Patient has soft tissue swelling to the anterior aspect of the neck but this is soft in nature movable and painless. There is no involvement of the submental space. No overlying erythema or warmth. No fluctuance. No crepitance. No pain with external manipulation of the thyroid cartilage. Resp normal respiratory effort and clear to auscultation bilaterally Resp Narrative: No nasal flaring retractions tachypnea or accessory muscle use Cardio regular rate and regular rhythm GI normal to inspection, nondistended, normoactive bowel sounds, non-tender, non-distended and no masses Auscultation: normoactive bowel sounds Palpation: soft Extremity normal to inspection Extremity Narrative: No asymmetric edema no pitting edema negative Homans' sign bilaterally Neuro oriented x3, CN's II-XII intact bilaterally and no sensory deficits noted Sensorium / Orientation: alert Motor Exam: strength 5/5 throughout Psych mental status grossly normal Skin no rashes or lesions noted and no wounds Skin Narrative: Soft tissue changes to the right cheek and anterior neck as documented above General Skin Exam: Negative for jaundice or pallor MDM MDM MDM Narrative Medical decision making narrative: Patient arrived to the ER with stable vitals and in no acute respiratory distress. Patient reported bouts of vomiting that were bloody in nature. On exam there appears to be a source of the blood in the right side posterior pharynx however this appears to have clotted off. In order to ensure that he does not have acute blood loss anemia thrombocytopenia or findings for potential infection such as epiglottitis retropharyngeal abscess or areas of persistent bleeding basic labs and a CT of the neck were obtained. Labs revealed no clinically significant findings and CT scan revealed changes in the right posterior pharynx which could indicate residual cancer but no active bleeding. The patient gargled with ice water and on reevaluation there has been removal of the blood in the posterior pharynx and there is no active bleeding noted. Therefore at this time as patient does not have acute blood loss anemia or thrombocytopenia there is no persistent bleeding in the posterior pharynx and no airway compromise I do not feel the need for inpatient evaluation and he can follow-up as an outpatient for continued care History & Record Review Discussion w/independent historian: Patient and Significant other Lab Data Attestation: I reviewed the patient's lab results. Labs: Laboratory Results - last 24 hr 09/02/24 22:32 WBC 4.6 RBC 3.93 L Hgb 10.8 L Hct 33.8 L MCV 86.0 MCH 27.5 MCHC 32.0 RDW Std Deviation 42.5 RDW Coeff of Jamin 13.6 Plt Count 161 MPV 9.9 Immature Gran % (Auto) 0.200 Neut % (Auto) 72.2 H Lymph % (Auto) 13.7 L Waldo % (Auto) 10.0 Eos % (Auto) 3.5 Baso % (Auto) 0.4 Absolute Neuts (auto) 3.3 Absolute Lymphs (auto) 0.63 L Nucleated RBC % 0 PT 13.9 INR 1.0 APTT 28.9 Sodium 137 Potassium 4.2 Chloride Direct 100 Carbon Dioxide 27.9 Anion Gap 9 BUN 27 H Creatinine 0.88 Estim Creat Clear Calc 103.41 Est GFR (MDRD) Non-Af 100 BUN/Creatinine Ratio 31.1 H Glucose 161 H Calcium 9.5 Radiography Diagnostic Testing: Clinical Impression(s) from Imaging Studies Soft Tissue Neck CT 09/02/24 22:21 IMPRESSION: Blurring and ill definition of the right parapharyngeal fat asymmetrically on the right adjacent to the pterygoid muscle for example axial 96 May represent radiation change with residual neoplasm not excluded. No evidence of contrast blush to suggest active extravasation of contrast, active bleed, identified at this time. There is a small amount of frothy material seen at the right side of the hypopharynx for example axial 84 and coronal 36 this may represent secretions, possible blood products. One or more dose reduction techniques were used (e.g., Automated exposure control, adjustment of the mA and/or kV according to patient size, use of iterative reconstruction technique). Reading Location: [facility] Discharge Plan Triage Chief Complaint: GI Bleed ED Provider: Jozef Zafar Dx/Rx/DC Orders Clinical Impression: Squamous cell carcinoma of overlapping sites of oropharynx, Type 2 diabetes mellitus, Hypertension, Coronary artery disease, Regional lymph node metastasis present, Hypercholesteremia Instructions: Mouth and Throat Tumors Prescriptions: No Action aspirin 81 mg tablet,delayed release (DR/EC) 81 mg PO QDAY docusate calcium 240 mg capsule 240 mg PO QDAY oxycodone 5 mg capsule 5 mg PO Q6H PRN (Reason: pain) ondansetron 8 mg tablet,disintegrating 8 mg PO Q8H PRN (Reason: nausea and vomiting) Qty: 30 1RF lidocaine-prilocaine 2.5-2.5 % cream 1 applic topical ONCE PRN (Reason: port access) 30 Days Qty: 30 2RF prochlorperazine maleate 10 mg tablet 10 mg PO Q6H PRN (Reason: nausea and vomiting) Qty: 30 2RF guaifenesin 100 mg/5 mL liquid 200 mg PO Q4H PRN (Reason: congestion) Qty: 1000 3RF Rx Instructions: take 10 mL q4 hrs prn mucus dexamethasone 4 mg tablet 8 mg PO .COMPLEX Qty: 14 0RF Rx Instructions: 8 mg orally on days 2 & 3 of chemotherapy cycle ONLY acetaminophen 500 mg/15 mL liquid 1,000 mg PO Q6H PRN (Reason: pain) Qty: 237 0RF atorvastatin 40 mg Tablet 40 mg PO DAILY glipizide 10 mg Tablet Extended Release 24hr 10 mg PO DAILY pioglitazone 30 mg Tablet 30 mg PO DAILY lisinopril 20 mg tablet 20 mg PO DAILY Qty: 30 0RF carvedilol 12.5 mg tablet 12.5 mg PO BID spironolactone 25 mg tablet 25 mg PO DAILY dapagliflozin propanediol [Farxiga] 10 mg tablet 10 mg PO DAILY nystatin 100,000 unit/mL suspension 5 ml PO Q6H clopidogrel 75 mg tablet 75 mg PO DAILY promethazine 12.5 mg suppository 12.5 mg NH Q6H PRN (Reason: nausea) Qty: 12 0RF Primary Care Provider: Zina Le Referrals: Zina Le MD [Primary Care Provider] - Activity Restrictions/Additional Instructions: Your CT scan showed no airway compromise epiglottitis or sites of active bleeding. There was irregularity along the right neck concerning for residual cancer. You may need an EGD to further assess your difficulty swallowing but at this time the workup in the ER is not showing signs of acute infection or airway compromise so you can have this done as an outpatient if needed. Please return to the ER should you have any further concerns Print Language: Kinyarwanda Disposition Disposition: Home, Self Care Discharge Date/Time: 09/03/24 01:35
== END 2024-09-03 01:35 | disposition home or self-care (01) ==
PROVIDERS: Emergency Provider Emergency Medicine; PCP Family Medicine; Referring Provider Emergency Medicine; Visit Provider Emergency Medicine
DX: C10.8 Malignant neoplasm of overlapping sites of oropharynx (principal); C77.9 Secondary and unspecified malignant neoplasm of lymph node, unspecified; E11.9 Type 2 diabetes mellitus without complications; I25.10 Atherosclerotic heart disease of native coronary artery without angina pectoris; I10 Essential (primary) hypertension; K92.2 Gastrointestinal hemorrhage, unspecified; E78.00 Pure hypercholesterolemia, unspecified; Z79.82 Long term (current) use of aspirin
CPT/HCPCS: 70491; 80048; 85025; 85610; 85730; 96360; 99283; Q9967; A4216

== ENCOUNTER → 2024-09-13 | Outpatient (CLI) | payer BC, SELFPAY ==
--- NOTE | 2024-09-13 14:28 | RAD_ITS ---
PROCEDURE: SWALLOWING FUNCTION W/VIDEO REASON FOR EXAM: Dysphagia. TECHNIQUE: Images from an intraoperative cholangiogram submitted by FLUOROSCOPIC TIME: 1 minute and 39 seconds minutes FLUOROGRAPHIC IMAGES: [id number] COMPARISON: None. FINDINGS: Please refer to the speech pathologist's notes. RAD/Swallowing Function w/Video IMPRESSION: Please refer to the speech pathologist's notes. Reading Location: [facility]
--- NOTE | 2024-09-13 15:48 | ST.MBS ---
Modified Barium Swallow Patient Information Study Date: 09/13/24 Study Time: 14:30 Direct Billable Minutes: 75 Total Minutes procedure & reportin Diagnosis: SCC of overlapping sites of oropharynx C10.8 Referring Physician: Juan Herrera Reason for Referral: Objectively assess swallow function, assess risk for aspiration, and determine recommendations for least restrictive diet textures and compensatory strategies to improve safety of swallow. Medical History: Oncology Hx per radiation oncology progress note 09/06/2024: 59 year-old male diagnosed with clinical stage III (cT4 N2 M0) p16 positive squamous cell carcinoma of the oropharynx status post CT neck with contrast (01/28/2024), CT chest (03/11/2024), evaluation by ENT (03/15/2024), completion of panendoscopy and biopsy of the base of tongue lesion with insertion of the PEG tube (03/15/2024), and PET scan (03/30/2024). From 04/12/2024 ? 05/28/2024 he received definitive chemoradiation. Dysphagia Hx: Pt reports swallowing difficulty beginning in January of 2024 when he began to notice tongue swelling, which prompted further evaluation that identified his cancer. BSE 04/15/2024 revealed mild oral dysphagia and recommended regular textures / thin liquids w/ use of aspiration precautions. MBSS 04/23/2024 revealed mild oropharyngeal dysphagia w/ recommendations for Regular Textures and Thin Liquids w/ aspiration precautions. During chemoradiation treatment, pt followed w/ ST for management of dysphagia. He was dependent on PEG tube for part of treatment, but was able to wean from PEG tube and resume full oral diet in July 2024. Unfortunately, the patient began w/ pain and some blood in his spit in August 2024. Per radiation oncologist, the patient has an ulceration in the area of the tumor site s/p radiation that is still healing. Pt was prescribed pain medication. Currently, he is taking 4 supplements via PEG and 2 supplements by mouth in addition to water by mouth. He reports pain 7/10 w/ oral intake, but denies swallowing difficulty other than odynophagia. Mild xerostomia. Returning poor taste since pain began in August. Other PMH: Vertebral artery occlusion, Hypercholesteremia, HTN, DM type 2. Current Diet Ordered: Full liquid w/ PEG Dentition: Edentulous Mental Status: WNL Respiratory Status: Oxygenating on Room Air Penetration-Aspiration Scale Penetration-Aspiration Scale: OBJECTIVE ASSESSMENT OF SWALLOW FUNCTION (QUANTITATIVE ? PER TRIAL): PENETRATION / ASPIRATION SCALE (DICKSON): 1 = does not enter airway 2 = enters airway/above vocal folds/ejected 3 = enters airway/above vocal folds/not ejected 4 = enters airway/contacts vocal folds/ejected 5 = enters airway/contacts vocal folds/not ejected 6 = enters airway/below vocal folds/ejected 7 = enters airway/below vocal folds/not ejected despite effort 8 = enters airway/below vocal folds/no effort VIDEOFLOROSCOPIC SCALE SCORE (DICKSON): Grade I = aspiration of material that has penetrated into the laryngeal vestibule, intact cough reflex Grade II = aspiration < 10 % of the bolus, intact cough reflex Grade III = aspiration of < 10 % of the bolus, reduced cough reflex or aspiration of > 10 % of the bolus, intact cough reflex Grade IV = aspiration of > 10 % of the bolus, reduced cough reflex Penetration-Aspiration Scale Score Thin Liquid via teaspoon: Result: 1= does not enter airway Thin Liquid via large single sip: cup: Result: 2= enter airway/above vocal folds/ejected Pudding via teaspoon: Result: 1= does not enter airway Thin Liquid via single sip: straw: Result: 1= does not enter airway Mandarin orange coated in pudding: Result: 1= does not enter airway Thin Liquid via sequential sips:straw: Result: 2= enter airway/above vocal folds/ejected Oral Phase Labial Seal: No Labial Escape Tongue Control During Bolus Hold: Posterior escape of greater than half of bolus Bolus Preparation/Mastication: Disorganized chewing/mashing with solid pieces of bolus unchewed Bolus Transport/Lingual Motion: Slowed tongue motion Oral Residue: Residue collection on oral structures Pharyngeal Phase Initiation of Pharyngeal Swallow: Bolus head in pyriforms Soft Palate Elevation: Trace column of contrast/air between soft palate and pharyngeal wall Laryngeal Elevation: Partial superior movement thyroid cart/partial apprx aryt-epig petiole Anterior Hyoid Excursion: Partial anterior movement Epiglottic Movement: Complete inversion Laryngeal Vestibule Closure at Height of Swallow: Incomplete; narrow column of air/contrast in laryngeal vestibule Pharyngeal Stripping Wave: Present - diminished Pharyngoesophageal Segment Opening: Parital distension and partial duration; parital obstruction of flow (trace retention in UES) Tongue Base Retraction: Narrow column of contrast between tongue base & post. pharyngeal wall Pharyngeal Residue: Collection of residue within or on pharyngeal structures Esophageal Phase Esophageal Clearance: Esophageal retention Diagnosis/Impression Diagnosis: Moderate oropharyngeal dysphagia R13.12 Impression: The oral phase is marked by... -Decreased bolus control w/ posterior loss of >1/2 of thin liquids to the pyriforms prior to swallow onset. -Slowed tongue motion for A-P transport. -Decreased mastication w/ portion of orange appearing un-chewed. The pharyngeal phase is marked by... -Mild pharyngeal residues consistently w/ food and drink due to decreased TB retraction, pharyngeal stripping wave. Pt often utilized a second swallow independently to clear residues. -Delayed swallow onset. -Decreased airway closure w/ decreased laryngeal elevation and anterior hyoid excursion. Laryngeal penetration of thin liquids via cup did not fully eject after the swallow; however, no aspiration was observed. The esophageal phase is marked by... -Retention of pudding in middle esophagus, which fully cleared w/ thin liquid wash. Pain ~4/10 (manageable) per pt during MBSS. MARKETING INFORMATION ANALYST recommended returning to po intake as tolerated w/ pain to decrease risk for disuse atrophy given extended time w/ limited po intake. Recommendations Diet: Soft and Bite Sized Textures and Thin Liquids Comment: Avoid foods that may irritate ulceration in oropharynx, including acidic, salty, or sugary foods, as well as foods of extreme temperatures (very hot or very cold). Compensatory Strategies: Small Bites (Chew thoroughly), Small Sips, Slow Rate, Multiple Swallows (Double swallows each bite/sip), Alternate bites/solids and sips/liquids, Sitting upright and Remain sitting upright for 30 minutes after PO intake Recommend Repeat Modified Barium Swallow: Yes Comment: Repeat MBS study in 6 months to monitor swallow function as the patient is at risk for worsening dysphagia and aspiration risk s/p radiation treatment. Need for Skilled Speech Therapy Services: Yes Comment: Resume dysphagia therapy... -Train the patient in use of strategies to decrease risk for aspiration. -Ongoing assessment of diet tolerance of recommended textures. Consider implementation of food/drink/weight log to encourage increasing oral intake and weaning from PEG. -Train the patient in oropharyngeal exercise program to improve bolus control, pharyngeal motility, and airway closure (lingual resistance, Damaris, effortful, Kathie). Education Completed: 1. Described result of evaluation., 2. Pt understands evaluation & agrees with goals and treatment plan. and 7. Pt requires further education on strategies & risks. Status Active ST Patient: Active Contact Information [facility] Speech Therapy:: Shanita Padilla M.A. CCC-MARKETING INFORMATION ANALYST? Speech-Language Pathologist?? [facility] [address] [place] [address]? [email or web address]?? [phone]
== END | disposition home or self-care (01) ==
LOC: RAD 14:27
PROVIDERS: PCP Family Medicine; Referring Provider Student in an Organized Health Care Education/Training Program; Visit Provider Student in an Organized Health Care Education/Training Program
DX: C10.8 Malignant neoplasm of overlapping sites of oropharynx (principal)
CPT/HCPCS: 74230; 92611

== ENCOUNTER 2024-09-28 15:00 | Outpatient (RCR) | payer BC, SELFPAY | END 2024-10-04 23:59 | LOC: NS 15:00 | PROVIDERS: PCP Family Medicine; Visit Provider Student in an Organized Health Care Education/Training Program | DX: Z71.3 Dietary counseling and surveillance (principal); C10.8 Malignant neoplasm of overlapping sites of oropharynx | CPT/HCPCS: 97803 ==

== ENCOUNTER 2025-05-31 15:52 | Outpatient (RCR) | payer BC, SELFPAY | END 2025-06-05 23:59 | LOC: NS 15:52 | PROVIDERS: PCP Family Medicine; Visit Provider Student in an Organized Health Care Education/Training Program | DX: Z71.3 Dietary counseling and surveillance (principal); C10.8 Malignant neoplasm of overlapping sites of oropharynx | CPT/HCPCS: 97803 ==

== ENCOUNTER → 2025-06-16 | Outpatient (CLI) | payer BC, SELFPAY ==
--- NOTE | 2025-06-15 09:15 | ASPIGT_PTH ---
PATIENT: CORONA PLASCENCIA Jr. LOC: CT U#:[id number] AGE/SX: 60/M ROOM: RE06/16/[address]: Dr. Abisai Diop MD : [id number] BED: DIS: 06/16/2025 SPEC #: [id number] RECD: 06/16/25 09:30 STATUS: CAR REQ #: [id number] REED: 06/15/25 09:[address]: Abisai Diop DEPT: SURGICAL PATHOLOGY RECD BY: Eric Hennessy ENTERED: 06/16/25 09:58 SP TYPE: ASP RAD OTHR DR: MD Dr. Zina Hadley MD Tissues: A - Lung, NOS Procedures: FNA Specimen Adequacy Special Stain Group II Surgery Specimen Level V Imprint (control) HEADER OPERATION: Left lung PRE-OP DIAGNOSIS: Left lung mass TISSUE SUBMITTED: A- Left lung biopsy MICROSCOPIC DIAGNOSIS A. Lung, left, CT-guided core biopsy: - Squamous cell carcinoma - see note. - Extensive fibrosis and necrosis. Note: The history of oral squamous cell carcinoma is noted. Clinical correlation is necessary to determine primary vs metastatic origin of the current tumor. COMMENT The specimen is evaluated at the time of biopsy by Dr. Saba. Immediate Evaluation = Adequate, suspicious for malignancy. Adequate, suspicious for malignancy. MICROSCOPIC DESCRIPTION Slides are reviewed. GROSS DESCRIPTION A. Received in formalin labeled the patient's name and date of are 2 pink-red, focally anthracotic tissue cores and clotted blood, 0.7 cm and 0.8 cm in length by 0.1 cm in diameter. Touch preparations are made. Entirely submitted in 2 cassettes. DE 06/16/2025 CPT:07534,09227 ADDENDUM ADDENDUM ADDENDUM ADDENDUM ADDENDUM ADDENDUM ADDENDUM ADDENDUM ADDENDUM ADDENDUM ADDENDUM ADDENDUM ADDENDUM 06/20/2025 14:27 ADDENDUM 06/20/2025 14:27 ADDENDUM 06/20/2025 14:27 ADDENDUM 06/20/2025 14:27 ADDENDUM 06/20/2025 14:27 This addendum is to report the p16 IHC performed on block A1: A. The p16 IHC is diffusely strongly positive throughout the tumor. Slides are reviewed. All matched controls reacted appropriately. These tests were developed and their performance characteristics determined by [facility]. They may not have been cleared or approved by the U.S. Food and Drug Administration. The FDA has determined that such clearance or approval is not necessary. The above immunohistochemical markers and/or special?stains have been reviewed by the Pathologist
[2025-06-16] VITALS (15 sets, daily range): BP systolic 132–161; BP diastolic 76–97; PULSE 59–86; RESP 7–17; TEMP 36.7; O2SAT 93–100; BMI 23.1
[2025-06-16 07:57] LABS: Hematocrit 45.1 % (40-54); Hemoglobin 14.3 g/dL (13.0-16.5); Immature Granulocytes Count 0.010 X10^3/uL (0.0-0.0); Mean Corp Hgb Conc 31.7 g/dL (32-36); Mean Corpuscular Volume 88.6 fL (80-94); Mean Platelet Vol. 9.7 fl (6.2-12.0); NRBC Flagged by Analyzer 0 % (0-5); Platelet Count 142 K/mm3 (150-450); RBC Distribution Width CV 13.0 % (11.6-14.6); RBC Distribution Width SD 42.4 fl (35.1-43.9); Red Blood Count 5.09 M/mm3 (4.6-6.2); White Blood Count 3.5 K/mm3 (4.4-11.0)
[2025-06-16 08:07] LABS: Prothrombin Time (Protime)PT. 14.1 SECONDS (11.7-14.9)
[2025-06-16 08:08] LABS: Partial Thromboplast Time 28.2 Seconds (24.1-36.2)
--- NOTE | 2025-06-16 09:00 | CT_ITS ---
PROCEDURE: BIOPSY/INJ OR NEEDLE PLACEMENT 06/16/2025 REASON FOR EXAM: LUNG NODULE TECHNIQUE: Procedure Code: CTBX Modality: CT Procedure: BIOPSY/INJ OR NEEDLE PLACEMENT Coronal and Sagittal reconstruction series were provided. The procedure as well as the benefits and possible complications including infection, bleeding and pneumothorax were explained to the patient in the patient's . Informed consent was obtained. The patient was in the supine position. The overlying skin was prepped and draped in the usual sterile fashion. Conscious sedation was performed. The patient received 1 mg of Versed and 50 mcg of fentanyl intravenously. The patient was independently monitored by the department nurse. Conscious sedation was started at 9:19 a.m. and terminated at 9:34 a.m.. Following local anesthetic application, a 20 gauge core biopsy needle was placed into the peripheral nodule in the left upper lobe. 4 core specimen were obtained. The pathologist deemed the specimen adequate. The patient tolerated the procedure well. RADIATION DOSE SUMMARY: CTDlvol: 21 mGy DLP: 1557.25 mGycm COMPARISON: Prior study dated May 26, 2025. FINDINGS: Successful CT-guided core biopsies of the peripheral left upper lobe nodule. CT/Biopsy/Inj or Needle Placement IMPRESSION: Successful CT-guided core biopsy of the peripheral left upper lobe pulmonary no dule. The patient tolerated the procedure well. No immediate complication noted. Reading Location: [place] [id number]
--- NOTE | 2025-06-16 09:15 | RAD_ITS ---
PROCEDURE: CHEST INSP/EXP 2 VIEW 06/16/2025 REASON FOR EXAM: POST LUNG BIOPSY TECHNIQUE: Procedure Code: [id number] Modality: DX Procedure: CHEST INSP/EXP 2 VIEW AP inspiration expiration views were obtained following the left lung biopsy. COMPARISON: April 09, 2024. FINDINGS: No evidence of pneumothorax on the immediate post left lung biopsy radiographs. RAD/Chest Insp/Exp 2 View IMPRESSION: No evidence of pneumothorax on the immediate post left lung biopsy radiographs. Reading Location: [place] [id number]
[2025-06-16] MEDS: Midazolam 2 MG/2 ML Syringe IV (09:19)
[2025-06-16] MEDS: 0.9% Normal Saline (250mL Bag) 250 ML 15 ML IV (09:19)
[2025-06-16] MEDS: fentaNYL 100 MCG/2 ML Ampul IV ×2 (09:21→09:27)
[2025-06-16] MEDS: Lidocaine 2% (20 ml mdv) 20 ML Vial INFILT (09:23)
--- NOTE | 2025-06-16 11:15 | RAD_ITS ---
PROCEDURE: CHEST INSP/EXP 2 VIEW 06/16/2025 REASON FOR EXAM: POST LUNG BIOPSY 2 hour post lung biopsy. TECHNIQUE: Procedure Code: [id number] Modality: DX Procedure: CHEST INSP/EXP 2 VIEW Inspiration expiration views were obtained. COMPARISON: Prior study done earlier in the day. FINDINGS: No evidence of pneumothorax following the CT-guided left lung biopsy. RAD/Chest Insp/Exp 2 View IMPRESSION: No evidence of pneumothorax on the delayed chest images. The patient tolerated the procedure well. Reading Location: [place] [id number]
--- NOTE | 2025-06-16 14:03 | NURSING ---
Chest xray cleared by Dr. Salas at 1225.
== END | disposition home or self-care (01) ==
PROVIDERS: Radiology Diagnostic Radiology; PCP Family Medicine; Referring Provider Internal Medicine Hematology & Oncology; Visit Provider Internal Medicine Hematology & Oncology
DX: C34.12 Malignant neoplasm of upper lobe, left bronchus or lung (principal); J84.10 Pulmonary fibrosis, unspecified; J85.0 Gangrene and necrosis of lung
CPT/HCPCS: 32408; 36415; 71046; 77012; 85025; 85610; 85730; 88172; 88307; 88313; 99156; A4216; C2613